=== PATIENT | female | born 1955 | race Caucasian/White ===

== ENCOUNTER 2020-05-06 14:42 | Observation (INO) | payer MEDICARE, OTHER, SELFPAY ==
[2020-05-06] VITALS (8 sets, daily range): BP systolic 99–141; BP diastolic 63–79; PULSE 93–118; RESP 16–22; TEMP 36.1–36.8; O2SAT 96–100; BMI 26.7
--- NOTE | ~2020-05-06 | XR_ITS ---
EXAMINATION: XR chest 2V DATE: 05/06/2020 16:57 INDICATION: Syncope, history of hypertension and tobacco use TECHNIQUE: AP and lateral views of the chest are obtained. COMPARISON: 07/31/2015 FINDINGS: The lungs are free of acute opacities. There is no pleural effusion or pneumothorax. The ca rdiomediastinal silhouette is normal. There is moderate thoracic spondylosis. IMPRESSION: 1. No acute cardiopulmonary abnormality. Reviewed, dictated and finalized at location A.
--- NOTE | ~2020-05-06 | CT_ITS ---
EXAMINATION: CTA chest PE protocol DATE: 05/06/2020 18:25 INDICATION: Shortness of breath, elevated d-dimer, history of tobacco use TECHNIQUE: Computed tomography angiography (CTA) of the chest was performed with 100 mL Omnipaque-350 intravenous contrast timed to evaluate the pulmonary arteries. Coronal maximum intensity projection 3D-reconstructions were created by the technologist. The dose-length product (DLP) was 314.73 mGy-cm. Automated exposure control and iterative reconstruction technique were employed. COMPARISON: None. FINDINGS: The pulmonary arteries are well-opacified. No pulmonary embolism is identified. There is m ild emphysema. The lungs are free of acute opacities. There is no pleural effusion or pneumothorax. N o pathologically enlarged thoracic lymph nodes are identified. The heart size is normal. There is mil d thoracic spondylosis. IMPRESSION: 1. No pulmonary embolism or acute cardiopulmonary abnormality. Reviewed, dictated and finalized at location A.
--- NOTE | ~2020-05-06 | CT_ITS ---
EXAMINATION: CT brain wo con INDICATION: Transient alteration of awareness COMPARISON: None TECHNIQUE: Standard unenhanced head CT. The dose-length product (DLP) was 605.33 mGy-cm. The mA was a djusted according to patient size. Iterative reconstruction technique was employed. FINDINGS: There is no intracranial hemorrhage, acute infarction, or abnormal mass lesion. A small lac unar infarct is noted in the right basal ganglia. The ventricles are normal. There is no abnormal mas s effect or midline shift. Asymmetric calcification is noted in the left basal ganglia. The kessler-whit e matter differentiation is normal. The basal cisterns are patent. The orbits are normal. There is co mplete opacification of the left maxillary sinus, the left ethmoidal air cells, and the left frontal sinus. IMPRESSION: 1. No acute intracranial abnormality. 2. Complete opacification of the left maxillary sinus, the left ethmoidal air cells, and the left fro ntal sinus. Reviewed, dictated and finalized at location A. IMPRESSION: 1. No acute intracranial abnormality. 2. Complete opacification of the left maxillary sinus, the left ethmoidal air c ells, and the left frontal sinus.
--- NOTE | 2020-05-06 14:46 | ECG_ITS ---
Measurements Intervals [place] Rate: 96 P: 59 TN: 111 QRS: -11 QRSD: 77 T: 35 QT: 356 QTc: 452 Interpretive Statements SINUS RHYTHM WITH SHORT TN INTERVAL POSSIBLE LEFT ATRIAL ENLARGEMENT BASELINE ARTIFACT- I, III, AVR, AVL BORDERLINE ECG Electronically Signed On 05-06-2020 15:24:33 CDT by Jovon Barfield D.O.
--- NOTE | 2020-05-06 14:53 | PC.NURSE ---
SPOKE WITH [employer]OR[employer] DES[employer] SALESPERSON CAROL ABOUT MY CONCERNS FOR THIS PT BEING PLACE IN TRIAGE/WR RELATED TO HER HX OF UNRESPONSIVE EPISODES. 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
[2020-05-06 15:12] LABS: Basophils Absolute Auto 0.1 K/mm3 (0.0-0.1); Basophils Percent Auto 0.8 % (0.2-1.2); Eosinophils Percent Auto 0.1 % (0-4.4); Hematocrit 34.2 % (37.0-47.0); Hemoglobin 11.5 g/dL (12.0-15.0); Immature Granulocyte Absolute 0.02 K/mm3 (0.00-0.031); Immature Granulocyte Percent A 0.2 % (0-0.5); Lymphocytes Absolute Auto 1.24 K/mm3 (0.9-3.2); Lymphocytes Percent Auto 13.6 % (18.3-44.2); Mean Corpuscular HGB Conc 33.6 g/dl (32-36); Mean Corpuscular Volume 92.2 fl (80-100); Mean Platelet Volume 8.4 fl (7.4-10.4); Monocytes Absolute Auto 0.5 K/mm3 (0.1-0.6); Monocytes Percent Auto 5.9 % (2.6-8.5); Neutrophils Absolute Auto 7.2 K/mm3 (1.3-6.7); Neutrophils Percent Auto 79.4 % (45.5-73.1); Platelet Count Result 323 k/mm3 (150-375); Red Blood Count 3.71 M/mm3 (4.2-5.4); Red Cell Distribution Width 14.5 % (11.5-14.5); White Blood Count 9.1 K/mm3 (4.5-10.0)
[2020-05-06 15:28] LABS: Anion Gap 11 mmol/L (8-16); Blood Urea Nitrogen 13 mg/dL (7-17); Calcium 8.6 mg/dL (8.4-10.2); Carbon Dioxide 21 mmol/L (22-30); Chloride 102 mmol/L (98-107); Estimated CRCL calculation 48 ml/min; Estimated Glomerular Filt Rate > 60; Glucose 116 mg/dL (65-105); Potassium 3.9 mmol/L (3.4-5.0); Sodium 134 mmol/L (137-145)
[2020-05-06 15:32] LABS: D Dimer 2.19 ug/mL (<0.48)
[2020-05-06 15:35] LABS: Magnesium 1.7 mg/dL (1.6-2.3)
[2020-05-06 15:48] LABS: NT Pro B Type Natriuretic Pept 657 PG/ML (5-100); Troponin I < 0.012 ng/mL (0.000-0.034)
[2020-05-06] MEDS: LACTATED RINGERS 1,000 ML 150 ML IV CONT ×2 (15:50→22:51)
--- NOTE | 2020-05-06 15:51 | PC.NURSE ---
IV is in L wrist
--- NOTE | 2020-05-06 16:00 | ED.SYNCOPE ---
HPI - Syncope General Chief Complaint: Syncope Stated Complaint: unresponsive episode. Time Seen by Provider: 05/06/20 15:10 Source: patient and EMS Mode of arrival: EMS Limitations: no limitations History of Present Illness HPI narrative: 64-year-old female Patient states she went to her truck in the [id number] parking lot to smoke a cigarette fell out Per EMS that actually happened more than once and she was at least briefly arousable only with sternal rub although they did not report any seizure type activity, nor was she incontinent and did not seem to be very postictal Blood pressure was low and improved somewhat after a modest amount of IV fluids Patient denies any prodromal symptoms or illness, denies palpitations or chest pain, headache or persisting neurologic symptoms She says she only takes 2 medications lisinopril and possibly atenolol for hypertension MD complaint: loss of consciousness Onset (ago): hour(s) Prodromal symptoms: none Related Data Home Medications Medication Instructions Recorded Confirmed atenolol 25 mg tablet 25 mg PO BID tablet 02/05/20 lisinopril 10 mg tablet 10 mg PO DAILY 02/05/20 Allergies Allergy/AdvReac Type Severity Reaction Status Date / Time No Known Allergies Allergy Verified 05/06/20 19:05 Review of Systems Review of Systems: All systems reviewed & are unremarkable except as noted in HPI and below Constitutional: Constitutional: Denies chills, Denies fatigue, Denies fever(s), Denies headache(s) and Denies night sweats Eyes: Eyes: Denies change in vision, Denies loss of vision and Denies other visual disturbances ENT: Denies headache(s), Denies hoarseness, Denies nasal congestion and Denies sore throat Cardiovascular: Cardiovascular: Denies chest pain, Denies rapid heart rate, Denies leg edema, Denies palpitations, Denies dyspnea and Denies slow heart rate Respiratory: Respiratory: Denies cough, Denies dyspnea and Denies wheezing Gastrointestinal: Gastrointestinal: Denies abdominal pain, Denies diarrhea, Denies nausea and Denies vomiting Genitourinary: Genitourinary: Denies hematuria, Denies urinary frequency and Denies dysuria Musculoskeletal: Musculoskeletal: Denies abnormal gait, Denies deformity, Denies joint swelling, Denies muscle weakness and Denies numbness Integumentary/Breasts: Skin/Breast: Denies rash, Denies unusual bruising and Denies wounds Neurologic: Denies abnormal gait, Denies headache(s), Denies focal weakness, Denies loss of vision and Denies numbness Psychiatric: Psychiatric: Reports no additional psychiatric complaints Endocrine: Endocrine: Denies fatigue and Denies palpitations Hematologic/Lymphatic: Hematologic/Lymphatic: Denies easy bleeding and Denies easy bruising Allergic/Immunologic: Allergic/Immunologic: Denies wheezing PMFSH Past Medical History Medical History (Updated 05/06/20 @ 17:41 by Rikki Avelar MD) Hypertension Family History Family History (Updated 05/10/19 @ 11:58 by DOCTOR UNKNOWN) Mother Family history of glaucoma Family history of malignant neoplasm of breast in first degree relative Grandparent Family history of malignant neoplasm of breast in first degree relative Sibling Family history of malignant neoplasm of breast in first degree relative Other Family history of chronic obstructive pulmonary disease Family history of malignant neoplasm of breast Family history of thyroid disease Social History Social History Smoking status: Light tobacco smoker Alcohol intake: current Gender identity (if verbalized by the patient): Female Exam Const: General: no acute distress, well developed and alert Orientation/consciousness: patient oriented x3 (alert) and Other orientation findings (Alert) HENMT: Head: normal to inspection, normocephalic and atraumatic Ears: external ears normal General nose exam: No nasal discharge present Face and sinus: face symmetric Mouth: Yes Normal oral
--- NOTE | 2020-05-06 16:29 | PC.NURSE ---
came out stating that he believes patient is drunk. He states that a couple night ago she was so drunk she couldn't stand up
[2020-05-06 16:34] LABS: Ethanol 273 mg/dL (<10)
[2020-05-06 17:46] LABS: Amphetamine Screen Urine Negative (Negative); Barbiturate Screen Urine Negative (Negative); Benzodiazepines Screen Urine Negative (Negative); Cannabinoid Screen Urine Negative (Negative); Cocaine Screen Urine Negative (Negative); Methadone Screen Urine Negative (Negative); Opiate Screen Urine Negative (Negative); Phencyclidine Screen Urine Negative (Negative)
[2020-05-06] MEDS: THIAMINE HCL 200 MG/2 ML VIAL IV PUSH (19:02)
--- NOTE | 2020-05-06 19:18 | PC.NURSE ---
report received at this time; pt laying down on stretcher; rr even and unlabored, vs stable, pt in NAD. will continue to monitor pt for baseline status changes.
--- NOTE | 2020-05-06 21:11 | ADMGEN ---
This patient, Roz Forman, was admitted to 2 Medical Room 244-. Patient/family oriented to hospital policies and general routines including ID bracelet, bed and alarms, visiting hours, pain management, procedures, bathroom and other care routines, personal items, smoking policy, room service/diet, and visiting hours. Valuables list has been completed. Information on how to activate the Rapid Response Team has been discussed. Patient/Family are encouraged to report perceived risks to care and to ask questions if they do not understand what they are told or what they should do.
[2020-05-06] MEDS: ACETAMINOPHEN 325 MG TABLET 650 MG PO (22:47)
[2020-05-06] MEDS: FAMOTIDINE 20 MG/2 ML VIAL IV PUSH (22:47)
[2020-05-07] VITALS (7 sets, daily range): BP systolic 148–155; BP diastolic 67–86; PULSE 72–113; RESP 16–18; TEMP 36.2–36.6; O2SAT 96–99
[2020-05-07] MEDS: LORazepam INJ (*CRX) 2 MG/ML VIAL 0.5 MG IV PUSH (00:11)
[2020-05-07] MEDS: LACTATED RINGERS 1,000 ML 150 ML IV CONT ×2 (05:18→12:14)
[2020-05-07] MEDS: FAMOTIDINE 20 MG/2 ML VIAL IV PUSH (08:46)
[2020-05-07] MEDS: ASPIRIN 81 MG CHEWABLE TABLET PO (08:47)
[2020-05-07] MEDS: ACETAMINOPHEN 325 MG TABLET 650 MG PO (11:20)
[2020-05-07] MEDS: atenoloL 25 MG TABLET PO (12:13)
--- NOTE | 2020-05-07 16:51 | PM.SD ---
Same Day Admit/Disch: HPI History of Present Illness Chief complaint: syncope, etoh intoxication Narrative: PC_ ALCHOLOL INTOXICATION [facility]_ Roz Forman is a 64 year old female took a cigarette and fell back at [facility], earlier that day she had drank 2-3 glasses of rum, without eating any food. Pt has been drinking for years, she likes the taste. Pt has been to rehab before 5 years ago, discused about quitting she is eager to try librium at home. Told her it is a tapering dose and she must not drink when she is on it. Pt really wants to go home feels better now, no confusion or sickness. Little shakey hands but otherwise she has walked to the bathroom. And feels well holding conversation. Some history of breast cancer which makes her anxious. Pt is a smoker. [facility] Past Medical History Medical History (Updated 05/07/20 @ 17:05 by Carrie Chen MD) Breast cancer Hypertension Family History Family History Mother Family history of glaucoma Family history of malignant neoplasm of breast in first degree relative Grandparent Family history of malignant neoplasm of breast in first degree relative Sibling Family history of malignant neoplasm of breast in first degree relative Other Family history of chronic obstructive pulmonary disease Family history of malignant neoplasm of breast Family history of thyroid disease Social History Social History Smoking status: Light tobacco smoker Tobacco type: cigarettes Alcohol intake: current Drinks per week: 14 Substance use: never Gender identity (if verbalized by the patient): Female Spiritual care concerns: No Same Day Admit/Disch: Med Pre-admit Medications Home Medications Medication Instructions Recorded Confirmed Type atenolol 25 mg tablet 25 mg PO BID tablet 02/05/20 05/06/20 History lisinopril 10 mg tablet 10 mg PO HS 02/05/20 05/06/20 History chlordiazepoxide HCl 10 mg PO Q12H #20 cap 05/07/20 Rx Exam Const: General: well developed Nutritional Appearance: well nourished Other: Mild tremors in her hands HENMT: Head: normocephalic Eyes: General: appearance normal, both eyes and all related structures Pupils: Equal, round and reactive pupils present Neck: Neck: supple Chest: Chest palpation & inspection: normal inspection of the chest Resp: Effort & Inspection: normal respiratory effort Auscultation: clear to auscultation bilaterally Cardio: Jugular venous distension: no JVD Rhythm: regular rhythm Heart sounds: S1 normal heart sound present and S2 normal heart sound present GI: Inspection: normal to inspection GI Palp: No abdominal tenderness, Yes Soft to palpation and No Tenderness to palpation present (GI) Auscultation: normal bowel sounds Skin: General skin exam: normal color and dry skin Neuro: Cranial nerves: Yes CN's II-XII intact bilaterally and Yes Equal, round and reactive pupils present Cognition (Neuro): normal cognition Speech: normal speech Motor exam (neuro): 5/5 motor strength present throughout Extrem: General: other (Grazes on her knee caps ) Psych: Appearance: grossly normal Mental Status: mental status grossly normal DS: Data Data Completed and Pending Labs on day of discharge: Labs from last 24 hours 05/06/20 17:20 Urine Opiates Screen Negative Urine Methadone Screen Negative Ur Barbiturates Screen Negative Ur Phencyclidine Scrn Negative Ur Amphetamine Screen Negative U Benzodiazepines Scrn Negative Urine Cocaine Screen Negative U Cannabinoids Screen Negative DS: Summary Time Spent with Patient Time attestation: Total time spent providing and/or coordinating discharge services:40 minutes on day of discharge DS: Admitting Diagnosis Admitting Diagnosis Admitting Diagnosis: syncope, etoh intoxication DS: Discharge Diagnosis Discharge Diagnosis (1) Alcohol int
== END 2020-05-07 17:19 | disposition home or self-care (01) ==
LOC: ANHED 19:08 → ANH2MED 05-07 00:29
PROVIDERS: Emergency Medicine; Admitting Provider Internal Medicine; Emergency Provider Emergency Medicine; PCP Family Medicine; Visit Provider Family Medicine
DX: R55 Syncope and collapse (principal); F10.929 Alcohol use, unspecified with intoxication, unspecified; I10 Essential (primary) hypertension; F17.210 Nicotine dependence, cigarettes, uncomplicated; J32.0 Chronic maxillary sinusitis; Z85.3 Personal history of malignant neoplasm of breast; R94.31 Abnormal electrocardiogram [ECG] [EKG]; Z79.899 Other long term (current) drug therapy
CPT/HCPCS: 36415; 70450; 71046; 71275; 80048; 80307; 83735; 83880; 84484; 85025; 85380; 93005; 96361; 96374; 96375; 96376; 99285; A9270; G0378; J2060; J3411; J7120; Q9967

== ENCOUNTER 2021-02-11 08:22 | Outpatient (CLI) | payer MEDICARE, OTHER, SELFPAY ==
[2021-02-11 09:02] LABS: Alanine Aminotransferase 12 U/L (4-35); Albumin Level 4.8 g/dL (3.5-5.1); Alkaline Phosphatase 113 U/L (38-126); Anion Gap 11 mmol/L (8-16); Aspartate Amino Transferase 29 U/L (14-36); Bilirubin,Total 0.5 mg/dL (0.2-1.3); Blood Urea Nitrogen 16 mg/dL (7-17); Calcium 9.7 mg/dL (8.4-10.2); Carbon Dioxide 22 mmol/L (22-30); Chloride 105 mmol/L (98-107); Cholesterol 242 mg/dL (0-200); Estimated Glomerular Filt Rate > 60; Glucose 115 mg/dL (65-105); HDL Direct 69 mg/dL; Potassium 4.5 mmol/L (3.4-5.0); Sodium 138 mmol/L (137-145); Triglycerides 173 mg/dL (<150)
[2021-02-11 09:13] LABS: LDL Cholesterol Direct 121 mg/dL
[2021-02-11 12:35] LABS: Free T4 Free Thyroxine 1.18 ng/mL (0.78-2.19)
[2021-02-11 12:49] LABS: Thyroid Stimulating Hormone Reflex 0.871 uIU/mL (0.465-4.68)
[2021-02-14 14:59] LABS: Thyroid Stimulating Immunoglob <89 % baseline (<140)
[2021-02-16 02:46] LABS: Thyroid Peroxidase Antibodies <1 IU/mL (<9)
== END 2021-02-11 08:23 | disposition home or self-care (01) ==
PROVIDERS: PCP Family Medicine; Visit Provider Internal Medicine Endocrinology, Diabetes & Metabolism
DX: R94.6 Abnormal results of thyroid function studies (principal); I10 Essential (primary) hypertension; Z13.220 Encounter for screening for lipoid disorders
CPT/HCPCS: 36415; 80053; 80061; 84439; 84443; 84445; 84481; 86376

== ENCOUNTER 2021-08-19 09:13 | Outpatient (CLI) | payer MEDICARE, OTHER, SELFPAY ==
[2021-08-19 10:03] LABS: Alanine Aminotransferase 14 U/L (4-35); Albumin Level 4.3 g/dL (3.5-5.1); Alkaline Phosphatase 131 U/L (38-126); Anion Gap 9 mmol/L (8-16); Aspartate Amino Transferase 28 U/L (14-36); Bilirubin,Total 0.5 mg/dL (0.2-1.3); Blood Urea Nitrogen 15 mg/dL (7-17); Calcium 9.1 mg/dL (8.4-10.2); Carbon Dioxide 24 mmol/L (22-30); Chloride 102 mmol/L (98-107); Cholesterol 239 mg/dL (0-200); Estimated Glomerular Filt Rate > 60; Glucose 133 mg/dL (65-110); HDL Direct 89 mg/dL; Potassium 4.5 mmol/L (3.4-5.0); Sodium 135 mmol/L (137-145); Triglycerides 81 mg/dL (<150)
[2021-08-19 10:14] LABS: LDL Cholesterol Direct 126 mg/dL
[2021-08-19 10:55] LABS: Free T4 Free Thyroxine 1.11 ng/mL (0.78-2.19)
[2021-08-19 11:09] LABS: Thyroid Stimulating Hormone Reflex 0.772 uIU/mL (0.465-4.68)
[2021-08-21 06:02] LABS: Thyroid Peroxidase Antibodies <1 IU/mL (<9)
[2021-08-22 14:21] LABS: Thyroid Stimulating Immunoglob <89 % baseline (<140)
== END 2021-08-19 09:14 | disposition home or self-care (01) ==
PROVIDERS: Visit Provider Internal Medicine Endocrinology, Diabetes & Metabolism
DX: I10 Essential (primary) hypertension (principal); R94.6 Abnormal results of thyroid function studies; Z13.220 Encounter for screening for lipoid disorders
CPT/HCPCS: 36415; 80053; 80061; 84439; 84443; 84445; 84481; 86376

== ENCOUNTER 2023-01-04 08:51 | Outpatient (CLI) | payer MEDICARE, OTHER, SELFPAY ==
--- NOTE | ~2023-01-04 | NM_ITS ---
EXAMINATION: NM bone scan whole body DATE: 01/04/2023 13:38 INDICATION: Low back pain, unspecified. TECHNIQUE: 21.2 mCi Tc-99m HDP was administered intravenously. Delayed whole-body scintigrams were o btained. COMPARISON: Chest CT 05/06/2020, CT abdomen and pelvis 07/16/2016 FINDINGS: There is increased activity at L4-L5. IMPRESSION: 1. Increased activity at L4-L5, most likely degenerative disc disease with worsening from 07/16/2016. Consider lumbar spine radiographs. Reviewed, dictated and finalized at location A. IMPRESSION: 1. Increased activity at L4-L5, most likely degenerative disc disease with wors ening from 07/16/2016. Consider lumbar spine radiographs.
== END 2023-01-04 08:52 | disposition home or self-care (01) ==
PROVIDERS: PCP Family Medicine; Visit Provider Nurse Practitioner Family
DX: M54.50 Low back pain, unspecified (principal); Z85.3 Personal history of malignant neoplasm of breast; M51.36 Other intervertebral disc degeneration, lumbar region
CPT/HCPCS: 78306; A9503

== ENCOUNTER 2023-01-19 12:02 | Inpatient (IN) | payer MEDICARE, OTHER, SELFPAY ==
[2023-01-19] VITALS (25 sets, daily range): BP systolic 103–145; BP diastolic 53–96; PULSE 58–106; RESP 17–29; TEMP 36.1–37; O2SAT 95–100; BMI 24.5
--- NOTE | ~2023-01-19 | XR_ITS ---
Supine views of the abdomen Clinical history: Abdominal pain small bowel obstruction COMPARISON: 01/20/2023 Findings: NG tube is in satisfactory position. There is oral contrast within mildly dilated small bow el loops, as well as within large bowel. No free air evident. No abnormal mass lesion or calcificatio n is seen. Osseous structures are intact. Impression: NG tube in place. Possible partial small bowel obstruction. Reviewed, dictated and finalized at location M. Impression: NG tube in place. Possible partial small bowel obstruction.
--- NOTE | ~2023-01-19 | XR_ITS ---
EXAMINATION: XR abdomen NG/feed tube insert INDICATION: Nasogastric tube placement TECHNIQUE: Portable AP KUB-NG at 1620 hours COMPARISON: CT from today FINDINGS: The tip of the nasogastric tube projects in lower thorax, likely the distal esophagus. Jase mmend advancing at least 12 cm. There are multiple dilated loops of small bowel, consistent with smal l bowel obstruction seen on the comparison CT. IMPRESSION: 1. Nasogastric tube with its tip in the lower thorax, likely the distal esophagus. Recommend advancin g 12 cm. Reviewed, dictated and finalized at location F. IMPRESSION: 1. Nasogastric tube with its tip in the lower thorax, likely the distal esophag us. Recommend advancing 12 cm.
--- NOTE | ~2023-01-19 | XR_ITS ---
XR abdomen obstructive series DATE: 01/22/2023 09:13 INDICATION: Bowel obstruction TECHNIQUE: Portable supine and upright AP views on 02/01/2023 at 0 900 and 0902 hours COMPARISON: 01/21/2023 KUB FINDINGS: NG tube is noted with distal tip overlying the distal body of the stomach. There are dilated gas distended proximal and mid small bowel segments, with apparent decompression of the distal small bowel. There is a small amount of residual contrast material within the rectum and the colon. No intraperitoneal free air is evident. Mild infiltrates or atelectasis at the lung bases.. IMPRESSION: Mid to distal small bowel obstruction is suggested NG tube in stomach Reviewed, dictated and finalized at Location A. Reviewed, dictated and finalized at location []
--- NOTE | ~2023-01-19 | XR_ITS ---
EXAMINATION: XR abdomen NG/feed tube rechec INDICATION: Nasogastric tube adjustment TECHNIQUE: Portable AP KUB-NG at 1743 hours COMPARISON: 1620 hours FINDINGS: The tip of the nasogastric tube is in the distal esophagus just above the gastroesophageal junction. The proximal side port is approximately 8 cm above the gastroesophageal junction. Multiple dilated loops of small bowel are again seen. IMPRESSION: 1. Tip of the nasogastric tube in the distal esophagus with the proximal side port approximately 8 cm above the gastroesophageal junction. Reviewed, dictated and finalized at location F. IMPRESSION: 1. Tip of the nasogastric tube in the distal esophagus with the proximal side p ort approximately 8 cm above the gastroesophageal junction.
--- NOTE | ~2023-01-19 | CT_ITS ---
EXAMINATION: CT abdomen pelvis w con INDICATION: Abdominal pain TECHNIQUE: Computed tomographic images of the abdomen and pelvis were obtained after the administrati on of 100 cc of Omnipaque 350 intravenous contrast. The dose-length product (DLP) was 381.17 mGy-cm. Automated exposure control and iterative reconstruction technique were employed. COMPARISON: 07/16/2016 FINDINGS: Minimal dependent atelectasis is present in the lung bases. The heart size is normal. There is a small sliding hiatal hernia. Mild scarring anteriorly in the right middle lobe could be related to radiation treatment for right breast cancer. The liver, spleen, pancreas, gallbladder, and adrena l glands are normal. The kidneys are unremarkable. No pathologically enlarged abdominal or pelvic lym ph nodes are identified. There are multiple dilated loops of small bowel. There are two adjacent sewell sition points in the lower abdomen. The affected segment of bowel between the transition point demons trates circumferential wall thickening and a small volume of associated ascites. The terminal ileum a nd colon are relatively decompressed. There is no free intraperitoneal gas. Colonic diverticulosis is present without evidence of diverticulitis. There is moderate lumbar spondylosis. IMPRESSION: 1. Findings consistent with closed loop small bowel obstruction and with possible ischemia of the aff ected small bowel segment. Surgical evaluation is recommended. These findings and recommendations wer e discussed with Rosina Orellana PA-C in the Emergency Department at 1505 hours on 01/19/2023. Reviewed, dictated and finalized at location F. IMPRESSION: 1. Findings consistent with closed loop small bowel obstruction and with possib le ischemia of the affected small bowel segment. Surgical evaluation is recomme nded. These findings and recommendations were discussed with Rosina Orellana PA-C in the Emergency Department at 1505 hours on 01/19/2023.
--- NOTE | ~2023-01-19 | XR_ITS ---
EXAMINATION: XR abdomen obstructive series DATE: 01/23/2023 05:58 INDICATION: Partial small bowel obstruction TECHNIQUE: Supine and upright views of the abdomen. FINDINGS: Comparison to 01/20/2023 The visualized lung parenchyma is normal.. There are mildly dilated loops of small bowel. There is co ntrast in the colon with gas in the rectum. NG tube in the stomach. Left basilar atelectasis. Small l eft pleural effusion. Gas and stool are seen throughout the colon to the level of the rectum. There is no free air. IMPRESSION: 1. Mildly dilated small bowel, decreased in size compared with prior studies, consistent with at justen st partial small bowel obstruction. 2: Left basilar atelectasis. 3: Small left pleural effusion. Reviewed, dictated and finalized at location A. IMPRESSION: 1. Mildly dilated small bowel, decreased in size compared with prior studies, consistent with at least partial small bowel obstruction. 2: Left basilar atelectasis. 3: Small left pleural effusion.
--- NOTE | ~2023-01-19 | XR_ITS ---
XR abdomen/kub 1V 01/24/2023 05:33 INDICATION: Partial small bowel obstruction TECHNIQUE: KUB COMPARISON: Comparison to multiple prior studies sequentially, with oldest reviewed study dated 02/2023. FINDINGS: NG tube in the stomach. There is mildly dilated small bowel central abdomen, improved since prior examination. There is residual contrast in the colon. There are pelvic phleboliths. IMPRESSION: 1: Improving small bowel distention, likely resolving ileus or partial small bowel obstruction.. Reviewed, dictated and finalized at location A. IMPRESSION: 1: Improving small bowel distention, likely resolving ileus or partial small ez wel obstruction..
--- NOTE | ~2023-01-19 | XR_ITS ---
XR fl guid NG/feed tube insert 01/20/2023 09:38 Indication: NG tube placement Procedure: Fluoroscopy was performed for attempted placement of NG tube. 1.1 minutes of fluoroscopy t mary jo. 1 fluoroscopic image. Comparison: CT dated 01/19/2023 Findings: Multiple attempts were made to place NG tube in supine and upright positions without succes s. Patient unable to tolerate continued attempts. Small bowel follow-through examination could not be subsequently performed. Impression: 1: Failed NG tube placement. Reviewed, dictated and finalized at location A. Impression: 1: Failed NG tube placement.
--- NOTE | ~2023-01-19 | XR_ITS ---
EXAMINATION: XR sm bowel follow through WS DATE: 01/20/2023 18:58 INDICATION: Small bowel obstruction TECHNIQUE: Oral contrast was administered, and sequential radiographs of the abdomen were obtained. F our sequential images of the abdomen are obtained over three hours. COMPARISON: 1524 hours FINDINGS: The nasogastric tube is in the stomach. There are multiple markedly dilated loops of small bowel. Contrast passes to the expected point of the small bowel obstruction, but not beyond, at the t hree are time point. IMPRESSION: 1. Small bowel obstruction. Reviewed, dictated and finalized at location F. IMPRESSION: 1. Small bowel obstruction.
--- NOTE | ~2023-01-19 | XR_ITS ---
SMALL BOWEL SERIES ONLY INDICATION: Small bowel obstruction TECHNIQUE: KUB performed. Small bowel follow-through examination could not be performed due to inabil ity to place NG tube. COMPARISON: 01/19/2023 FINDINGS: Filled small bowel follow-through examination. Dilated small bowel, consistent with obstruc tion. IMPRESSION: 1: Small bowel obstruction. Failed small bowel follow-through study due to lack of NG tube. Reviewed, dictated and finalized at location A. IMPRESSION: 1: Small bowel obstruction. Failed small bowel follow-through study due to lac k of NG tube.
--- NOTE | ~2023-01-19 | XR_ITS ---
EXAMINATION: XR fl guid NG/feed tube insert DATE: 01/20/2023 15:44 INDICATION: Small bowel obstruction. TECHNIQUE: I placed a nasogastric tube under fluoroscopic guidance using a guidewire. Fluoroscopy exp osure time was 10.8 minutes. The number of images was 1. COMPARISON: Abdomen radiograph 01/19/2023 FINDINGS: There are multiple dilated loops of small bowel. The nasogastric tube tip is in the distal stomach. IMPRESSION: 1. Fluoroscopy guided nasogastric tube placement with tip in the distal stomach. 2. Small bowel obstruction. Reviewed, dictated and finalized at location A. IMPRESSION: 1. Fluoroscopy guided nasogastric tube placement with tip in the distal stomach . 2. Small bowel obstruction.
[2023-01-19 12:44] LABS: Basophils Absolute Auto 0.1 K/mm3 (0.0-0.1); Basophils Percent Auto 1.1 % (0.2-1.2); Eosinophils Absolute Auto 0.1 K/mm3 (0-0.3); Eosinophils Percent Auto 1.5 % (0-4.4); Hematocrit 39.6 % (37.0-47.0); Hemoglobin 12.6 g/dL (12.0-15.0); Immature Granulocyte Absolute 0.01 K/mm3 (0.00-0.031); Immature Granulocyte Percent A 0.2 % (0-0.5); Lymphocytes Absolute Auto 1.16 K/mm3 (0.9-3.2); Lymphocytes Percent Auto 21.3 % (18.3-44.2); Mean Corpuscular HGB Conc 31.8 g/dl (32-36); Mean Corpuscular Hemoglobin 29.4 pg (26-34); Mean Corpuscular Volume 92.3 fl (80-100); Mean Platelet Volume 9.3 fl (7.4-10.4); Monocytes Absolute Auto 0.9 K/mm3 (0.1-0.6); Monocytes Percent Auto 15.8 % (2.6-8.5); Neutrophils Absolute Auto 3.3 K/mm3 (1.3-6.7); Neutrophils Percent Auto 60.1 % (45.5-73.1); Platelet Count Result 316 k/mm3 (150-375); Red Blood Count 4.29 M/mm3 (4.2-5.4); Red Cell Distribution Width 13.4 % (11.5-14.5); White Blood Count 5.4 K/mm3 (4.5-10.0)
[2023-01-19 13:01] LABS: Alanine Aminotransferase 17 U/L (6-35); Albumin Level 4.4 g/dL (3.5-5.1); Alkaline Phosphatase 81 U/L (38-126); Anion Gap 8 mmol/L (8-16); Aspartate Amino Transferase 31 U/L (14-36); Blood Urea Nitrogen 40 mg/dL (7-17); Calcium 9.2 mg/dL (8.4-10.2); Carbon Dioxide 30 mmol/L (22-30); Chloride 94 mmol/L (98-107); Estimated CRCL calculation 29 ml/min; Estimated Glomerular Filt Rate 41; Glucose 109 mg/dL (65-110); Lipase 29 U/L (23-300); Potassium 4.4 mmol/L (3.4-5.0); Sodium 132 mmol/L (137-145)
--- NOTE | 2023-01-19 14:18 | ED.ABDPAIN ---
HPI - Abdominal Pain General Chief Complaint: Abdominal Pain <SUNDAY Javier Last Filed: 01/21/23 11:56> Stated Complaint: abd pain <SUNDAY Javier Last Filed: 01/21/23 11:56> Time Seen by Provider: 01/19/23 12:48 <SUNDAY Javier Last Filed: 01/21/23 11:56> History of Present Illness HPI narrative: 67-year-old female with a history of hypothyroidism, hypertension, history of breast cancer and history of bowel obstruction 7 years ago reports for evaluation of generalized abdominal pain and distention. Patient states she thinks she is having another bowel obstruction and this is exactly how she presented when she was previously diagnosed with a bowel obstruction. She states her last bowel movement was yesterday. She reports obstipation for the past 2 days, nausea and approximately 5 episodes of nonbloody vomiting. She reports decreased p.o. intake secondary to nausea and decreased urine output. Last urination was this morning. Denies dysuria, frequency or urgency, fever, bodyaches or chills, chest pain or shortness of breath. States when she had a bowel obstruction 7 years ago she had to undergo 2 abdominal surgeries after. She denies history of other abdominal surgeries. <SUNDAY Javier Last Filed: 01/21/23 11:56> Related Data Home Medications: Home Medications Medication Instructions Recorded Confirmed atenolol 25 mg tablet 25 mg PO BID 02/05/20 01/19/23 lisinopril 10 mg tablet 10 mg PO DAILY 02/05/20 01/19/23 meloxicam 7.5 mg tablet 7.5 mg PO BID back pain 01/19/23 01/19/23 <SUNDAY Javier Last Filed: 01/21/23 11:56> Allergies/Adverse Reactions: Allergies Allergy/AdvReac Type Severity Reaction Status Date / Time No Known Allergies Allergy Verified 01/29/23 09:28 <SUNDAY Javier Last Filed: 01/21/23 11:56> Review of Systems Review of Systems: CONSTITUTIONAL: Denies fever, chills EYES: Denies visual changes, redness, or discharge. ENT: Denies rhinorrhea, congestion, sore throat, or otalgia. CARDIOVASCULAR: Denies chest pain, palpitations, or edema. RESPIRATORY: Denies cough or dyspnea. GASTROINTESTINAL: See HPI GENITOURINARY: Denies dysuria or hematuria. SKIN: Denies rash or itching. MUSCULOSKELETAL: Denies back pain, joint pain, or myalgia. NEUROLOGIC: Denies headache, numbness, dizziness, or weakness. PSYCHIATRIC: Denies anxiety or depression. <Rosina Orellana PA-C - Last Filed: 01/21/23 11:56> [facility] Past Medical History Medical History: Medical History Bowel obstruction (~2015) Breast cancer (~2014) Rt breast lumpectomy, chemo, radiation - [facility] Hypertension <SUNDAY Javier Last Filed: 01/21/23 11:56> Surgical History Surgical History: Surgical History H/O: hysterectomy History of hernia surgery (~2015) History of intestinal surgery (~2015) bowel obstruction History of lumpectomy of right breast (~2014) <SUNDAY Javier Last Filed: 01/21/23 11:56> Family History Family History: Family History Mother Family history of glaucoma Family history of malignant neoplasm of breast in first degree relative Grandparent Family history of malignant neoplasm of breast in first degree relative Sibling Family history of malignant neoplasm of breast in first degree relative Other Family history of chronic obstructive pulmonary disease Family history of malignant neoplasm of breast Family history of thyroid disease <SUNDAY Javier Last Filed: 01/21/23 11:56> Social History Social History: Social History Social History: she has 2 children a son and a daughter. She lives with her daniel. 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
[2023-01-19] MEDS: ONDANSETRON INJ 4 MG/2 ML VIAL IV PUSH ×2 (14:39→21:15)
[2023-01-19] MEDS: HYDROmorphone HCL INJ (*CRX) 1 MG/ML SYR 0.5 MG IV PUSH ×3 (14:39→23:46)
[2023-01-19] MEDS: SODIUM CHLORIDE 0.9% IV 1,000 ML 999 ML IV CONT (14:39)
[2023-01-19 15:38] LABS: Lactic Acid Reflex 0.9 mmol/L (0.7-2.0)
--- NOTE | 2023-01-19 17:06 | PM.CNGS ---
Assessment and Plan Assessment and plan (1) Small bowel obstruction: Code(s): K56.609 - Unspecified intestinal obstruction, unspecified as to partial versus complete obstruction Status: Acute Assessment and Plan: Long discussion with patient and regarding findings on CT scan, the patient's lactate and white count are normal indicating no ischemic changes at this time, her exam is somewhat concerning given voluntary guarding in the right lower quadrant, the patient and want to be transferred to [place] where she had her previous surgeries, discussed with the emergency room physician who will facilitate transfer at this time History of Present Illness Consult details Consult date: 01/19/23 Reason for consult: abdominal pain Requesting physician: Rosina Orellana PA-C Narrative: The patient is a 67-year-old female presenting to the emergency department complaining of worsening abdominal pain over the 72 hours. Patient reports poor appetite associated with nausea, constipation over this time. The patient reports that the pain is constant but intermittently becomes very intense and crampy. The patient reports this is very similar to her previous episodes of bowel obstructions. The patient has a complicated surgical history including to major abdominal surgeries secondary to bowel obstruction approximately 7 years ago. Review of Systems Constitutional: Constitutional: Reports as per HPI, Reports anorexia, Denies chills, Reports fatigue, Denies fever(s), Denies increased appetite, Reports lethargy, Reports malaise, Reports poor appetite, Reports weakness, Denies weight gain and Denies weight loss Eyes: Eyes: Reports no additional eye complaints ENT: Reports system reviewed and no additional complaints, except as documented Cardiovascular: Cardiovascular: Reports no additional cardiovascular complaints Respiratory: Respiratory: Reports no additional respiratory complaints Gastrointestinal: Gastrointestinal: Reports as per HPI, Reports abdominal pain, Reports bloating, Reports change in bowel habits, Reports constipation, Reports GI cramping, Reports early satiety, Reports nausea and Denies vomiting Genitourinary: Genitourinary: Reports no additional female genitourinary complaints Musculoskeletal: Musculoskeletal: Reports no additional musculoskeletal complaints Integumentary/Breasts: Skin/Breast: Reports system reviewed and no additional complaints, except as docu Neurologic: Reports system reviewed and no additional complaints, except as documented Psychiatric: Psychiatric: Reports no additional psychiatric complaints Endocrine: Endocrine: Reports no additional endocrine complaints Hematologic/Lymphatic: Hematologic/Lymphatic: Reports no additional hematologic/lymphatic complaints Allergic/Immunologic: Allergic/Immunologic: Reports no additional allergic/immunologic complaints PMFSH Past Medical History Medical History Bowel obstruction (~2015) Breast cancer (~2014) Rt breast lumpectomy, chemo, radiation - [facility] Hypertension Surgical History Surgical History History of hernia surgery (~2015) History of intestinal surgery (~2015) bowel obstruction History of lumpectomy of right breast (~2014) Family History Family History Mother Family history of glaucoma Family history of malignant neoplasm of breast in first degree relative Grandparent Family history of malignant neoplasm of breast in first degree relative Sibling Family history of malignant neoplasm of breast in first degree relative Other Family history of chronic obstructive pulmonary disease Family history of malignant neoplasm of breast Family history of thyroid disease Social History Social History Smoking
--- NOTE | 2023-01-19 17:21 | PC.NURSE ---
RN advances NG tube to 65. NG suctioning still suctioning. At this time 250mls of brownish contents in the suction container.
[2023-01-19 17:44] LABS: Appearance Urine Cloudy (Clear); Bacteria Urine 4+ /hpf; Bilirubin Urine Negative (Negative); Blood Urine Negative (Negative); Color Urine Yellow (Yellow); Glucose Urine UA Negative (Negative); Ketones Urine 1+ mg/dL (Negative); Leukocyte Esterase Ur Negative LEU/UL (Negative); Need Manual Microscopic Reviewed; Nitrate Urine Negative (Negative); Non Pathogenic Casts 0-2; Protein Urine Negative (Negative); RBC Urine 0-2 /hpf (0-2); Squamous Epithelial Cell Urine Many /hpf (Few); Urobilinogen Urine 0.2 mg/dL (<2.0); WBC Urine 0-5 /hpf
[2023-01-19 17:47] LABS: Specific Grav Ur 1.069 (1.001-1.035)
[2023-01-19 17:48] LABS: Add Urine Microscopic? YES
[2023-01-19] MEDS: BENZOCAINE/TETRACAINE SPRAY (*SP) 56 ML AEROSOL 1 SPRAY (18:24)
--- NOTE | 2023-01-19 19:54 | PM.IMHP ---
H&P: HPI History of Present Illness Date/Time: 01/19/23 19:54 Chief Complaint: Abdominal pain Narrative: this is a 67-year-old female patient who has had a history of small-bowel obstructions in the past. She also has a history of hypothyroidism hypertension and history of breast cancer. Patient had a history of having a small-bowel obstruction 7 years ago. The patient was told that she has a lot of scar tissue. The patient stated that her pain today was as severe as 7 years ago when she had a small-bowel obstruction. The patient had a normal bowel movement yesterday. The patient stated that she had obstipation our last 2 days with nausea and at least 5 episodes of nonbloody emesis. the patient stated that she ate a taco yesterday and in the middle of the night she vomited and unknown digested taco. Patient had undergone 2 abdominal surgery 7 years ago when she had a bowel obstruction. Her sodium is slightly low at 132. BUN 40 creatinine 1.3. GFR is 41. Her urine has many squamous cells and 4+ bacteria. The patient has lower back pain but stated she has not had any urinary symptoms. Abdominal pelvis CT was read as the followingFindings consistent with closed loop small bowel obstruction and with possible ischemia of the affected small bowel segment. Surgical evaluation is recommended. These findings and recommendations were discussed with Rosina Orellana PA-C in the Emergency Department at 1505 hours on 01/19/2023. initially the patient was going to be transferred to outside facility were her surgeries were performed. However there were no beds at [facility]. The patient had NG tube placed. The ED provider spoke with Dr. Browne who agrees to be a consult and advise is a small-bowel follow-through. The patient is being admitted to inpatient status on the date of service 01/20/2020 Review of Systems Review of Systems: All systems reviewed & are unremarkable except as noted in HPI and below Constitutional: Constitutional: Reports as per HPI and Reports no additional constitutional complaints Eyes: Eyes: Reports as per HPI and Reports no additional eye complaints ENT: Reports system reviewed and no additional complaints, except as documented and Reports Normal hearing present Cardiovascular: Cardiovascular: Reports no additional cardiovascular complaints Respiratory: Respiratory: Reports no additional respiratory complaints and Reports no additional respiratory complaints Gastrointestinal: Gastrointestinal: Reports as per HPI and Reports no additional gastrointestinal complaints Musculoskeletal: Musculoskeletal: Reports no additional musculoskeletal complaints Integumentary/Breasts: Skin/Breast: Reports system reviewed and no additional complaints, except as docu and Reports as per HPI Neurologic: Reports system reviewed and no additional complaints, except as documented, Reports as per HPI and Reports Normal hearing present Psychiatric: Psychiatric: Reports no additional psychiatric complaints and Reports as per HPI Endocrine: Endocrine: Reports no additional endocrine complaints Hematologic/Lymphatic: Hematologic/Lymphatic: Reports no additional hematologic/lymphatic complaints Allergic/Immunologic: Allergic/Immunologic: Reports no additional allergic/immunologic complaints [facility] Past Medical History Medical History (Updated 01/19/23 @ 23:31 by Tri Amaya NP) Bowel obstruction (~2015) Breast cancer (~2014) Rt breast lumpectomy, chemo, radiation - [place] Hypertension Surgical History Surgical History (Updated 01/19/23 @ 19:55 by Tri Amaya NP) H/O: hysterectomy History of hernia surgery (~2015) History of intestinal surgery (~2015) bowel obstruction History of lumpectomy of right breast (~2014) Family History Family History Mother Family history of glaucoma Family history of malignant neoplasm of breast in first degree relative Grandpare
[2023-01-19] MEDS: SODIUM CHLORIDE 0.9% IV 1,000 ML 125 ML IV CONT (20:09)
--- NOTE | 2023-01-19 21:21 | ADMGEN ---
This patient, Roz Forman, was admitted to [address] [place] [address] Room [facility] at 2115 . Patient/family oriented to hospital policies and general routines including ID bracelet, bed and alarms, visiting hours, pain management, procedures, bathroom and other care routines, personal items, smoking policy, room service/diet, and visiting hours. Information on how to activate the Rapid Response Team has been discussed. Patient/Family are encouraged to report perceived risks to care and to ask questions if they do not understand what they are told or what they should do.
[2023-01-20 04:18] VITALS: BP 157/71; PULSE 101; RESP 18; TEMP 36.1; O2SAT 94
[2023-01-20] MEDS: SODIUM CHLORIDE 0.9% IV 1,000 ML 125 ML IV CONT ×2 (05:18→21:47)
[2023-01-20] MEDS: HYDROmorphone HCL INJ (*CRX) 1 MG/ML SYR 0.5 MG IV PUSH ×3 (05:19→21:49)
[2023-01-20] MEDS: ONDANSETRON INJ 4 MG/2 ML VIAL IV PUSH ×2 (05:26→10:11)
[2023-01-20 05:35] LABS: Hemoglobin 11.2 g/dL (12.0-15.0); Mean Corpuscular HGB Conc 31.1 g/dl (32-36); Mean Corpuscular Volume 93.3 fl (80-100); Mean Platelet Volume 9.5 fl (7.4-10.4); Platelet Count Result 288 k/mm3 (150-375); Red Blood Count 3.86 M/mm3 (4.2-5.4); Red Cell Distribution Width 13.6 % (11.5-14.5)
[2023-01-20 05:43] LABS: Lactic Acid Reflex 0.6 mmol/L (0.7-2.0)
[2023-01-20 05:46] LABS: Magnesium 1.7 mg/dL (1.6-2.3)
[2023-01-20 06:39] LABS: Thyroid Stimulating Hormone Reflex 0.284 uIU/mL (0.465-4.68)
[2023-01-20 07:41] LABS: Free T4 Free Thyroxine Reflex 1.35 ng/dL (0.78-2.19)
[2023-01-20 08:03] LABS: Band Neutrophils Percent 36 % (0-6); Lymphocytes Percent Manual 10 % (18-44); Metamyelocytes Percent 1 %; Monocytes Percent Manual 10 % (3-9); Neutrophils Absolute Manual 3.16 K/mm3 (1.7-7.2); Neutrophils Percent Manual 43 % (46-73); Platelet Estimate Adequate (Adequate); Total Cells Counted 100
[2023-01-20 08:04] LABS: Schistocytes None Seen (NORMAL)
--- NOTE | 2023-01-20 08:30 | PC.NURSE ---
Radiology called securities underwriter and stated the NG tube needs advanced and asked if securities underwriter could come down to attempt advancement of NG tube. Xray showed the tip of the tube above location needed. Patients nose was marked at 70cm. Candy Rolling Machine Operator did not attempt advancement and stated to radiology team the tube cannot be advanced anymore and we need a picture of the entire tube. Next xray showed the upper part of the NG tube was coiled. Candy Rolling Machine Operator removed NG tube completely and attempted placement. Patient vomited moderate amount during placement and tube was removed as patient was not tolerating it and pulling away. Radiology team recommended fluoroscopy for placement. Candy Rolling Machine Operator returned to unit and sent float/tasking SHIRIN Ogden to assist in radiology.
--- NOTE | 2023-01-20 08:55 | PC.NURSE ---
Patient requested that fha underwriter call and give him an update. Inspector Quality Assurance called Juloi César and updated him.
[2023-01-20 10:02] LABS: Total Triiodothyronine (T3) 0.83 NG/ML (0.97-1.69)
--- NOTE | 2023-01-20 11:21 | PM.IMPN ---
Progress Note: A&P Assessment and Plan (1) Bowel obstruction: Onset Date: ~2015 Code(s): K56.609 - Unspecified intestinal obstruction, unspecified as to partial versus complete obstruction Status: Acute Assessment and Plan: Surgery has been consulted continue with analgesics the patient is NPO at this time. Continue with IV fluids. (2) UTI (urinary tract infection): Code(s): N39.0 - Urinary tract infection, site not specified Status: Acute Assessment and Plan: Patient has no urinary symptoms. Discontinue Rocephin (3) Primary hypertension: Code(s): I10 - Essential (primary) hypertension Status: Acute Assessment and Plan: Atenolol and lisinopril on hold at this time as she is NPO. Continue p.r.n. hydralazine. Subjective Date/time seen: 01/20/23 11:21 Interval history: Patient reports nausea. NGT was attempted this morning but patient continued to throw up so NG tube could not be placed. Will be tried again later today Review of Systems Review of Systems: All systems reviewed & are unremarkable except as noted in HPI and below Constitutional: Constitutional: Reports as per HPI and Reports no additional constitutional complaints Eyes: Eyes: Reports as per HPI and Reports no additional eye complaints ENT: Reports system reviewed and no additional complaints, except as documented and Reports Normal hearing present Cardiovascular: Cardiovascular: Reports no additional cardiovascular complaints Respiratory: Respiratory: Reports no additional respiratory complaints and Reports no additional respiratory complaints Gastrointestinal: Gastrointestinal: Reports as per HPI and Reports no additional gastrointestinal complaints Musculoskeletal: Musculoskeletal: Reports no additional musculoskeletal complaints Integumentary/Breasts: Skin/Breast: Reports system reviewed and no additional complaints, except as docu and Reports as per HPI Neurologic: Reports system reviewed and no additional complaints, except as documented, Reports as per HPI and Reports Normal hearing present Psychiatric: Psychiatric: Reports no additional psychiatric complaints and Reports as per HPI Endocrine: Endocrine: Reports no additional endocrine complaints Hematologic/Lymphatic: Hematologic/Lymphatic: Reports no additional hematologic/lymphatic complaints Allergic/Immunologic: Allergic/Immunologic: Reports no additional allergic/immunologic complaints Exam Const: General: cooperative, healthy appearing, comfortable, no acute distress, well developed, awake, Physically active, average body habitus and well nourished Nutritional Appearance: average body habitus and well nourished Orientation/consciousness: oriented to person, oriented to place, oriented to time and patient oriented x3 Limitations: no limitations HENMT: Head: normal to inspection, No palpable skull fracture present, normocephalic and atraumatic Ears: hearing grossly normal bilaterally and external ears normal Face/Nose/Sinus: Normal external nose present ( and nG-tube in place) and Normal nares present Eyes: General: appearance normal, both eyes and all related structures Alignment and Position: alignment normal Periorbital: periorbital findings normal Eyelids: eyelids normal Sclera: sclerae normal Pupils: Equal, round and reactive pupils present and Pupil accommodation reflex normal EOM: EOMs intact bilaterally Neck: Neck: normal visual inspection, full ROM, no lymphadenopathy, trachea midline and supple Chest: Chest palpation & inspection: normal inspection of the chest Resp: Effort & Inspection: normal respiratory effort Auscultation: clear to auscultation bilaterally Cardio: Palpation: normal PMI Rate: regular rate Rhythm: regular rhythm Heart sounds: S1 normal heart sound present and S2 normal heart sound present Peripheral pulses: Peripheral pulses 2+ throughout GI: Inspection: normal to insp
--- NOTE | 2023-01-20 12:59 | PM.PNGS ---
Progress Note: A&P Assessment and Plan (1) Bowel obstruction: Onset Date: ~2015 Code(s): K56.609 - Unspecified intestinal obstruction, unspecified as to partial versus complete obstruction Status: Acute Assessment and Plan: will try to have radiology place NG under fluoro c light sedation, hopefully can get SBS after NG placed, cont serial exams, labs, still awaiting transfer to [facility] Subjective Subjective Date/Time Seen: 01/20/23 12:59 Interval history: feels a little better today, pain slightly improved, unable to place NG at bedside Review of Systems Review of Systems: All systems reviewed & are unremarkable except as noted in HPI and below Exam Const: General: cooperative, comfortable and no acute distress Resp: Auscultation: clear to auscultation bilaterally Cardio: Rate: regular rate Rhythm: regular rhythm GI: Inspection: normal to inspection and distended GI Palp: Yes abdominal tenderness, Yes Soft to palpation, Yes Tenderness to palpation present (GI), No Guarding due to palpation present (GI) and No Rigid due to palpation Objective Data Vital Signs Vital Signs: Vital Signs - 24 hr 01/19/23 14:14 01/19/23 15:31 01/19/23 16:29 Temperature Pulse Rate 74 58 L Respiratory Rate 20 22 H Blood Pressure 130/70 145/53 H 133/79 Pulse Oximetry 98 98 Oxygen Delivery 01/19/23 16:30 01/19/23 16:31 01/19/23 16:32 Temperature Pulse Rate 81 105 H 106 H Respiratory Rate 20 20 17 Blood Pressure 119/96 H Pulse Oximetry 100 Oxygen Delivery 01/19/23 16:45 01/19/23 16:46 01/19/23 17:00 Temperature Pulse Rate 99 91 93 Respiratory Rate 18 29 H 19 Blood Pressure 124/70 Pulse Oximetry Oxygen Delivery 01/19/23 17:01 01/19/23 17:02 01/19/23 17:18 Temperature Pulse Rate 88 84 85 Respiratory Rate 27 H 28 H 24 H Blood Pressure 103/64 Pulse Oximetry Oxygen Delivery 01/19/23 17:30 01/19/23 17:45 01/19/23 18:00 Temperature Pulse Rate 88 77 75 Respiratory Rate 25 H 21 H 23 H Blood Pressure Pulse Oximetry Oxygen Delivery 01/19/23 18:15 01/19/23 18:30 01/19/23 18:43 Temperature Pulse Rate 71 88 82 Respiratory Rate 17 24 H 24 H Blood Pressure 121/74 Pulse Oximetry Oxygen Delivery 01/19/23 18:45 01/19/23 18:46 01/19/23 19:00 Temperature Pulse Rate 73 82 85 Respiratory Rate 28 H 20 19 Blood Pressure 131/82 Pulse Oximetry Oxygen Delivery 01/19/23 20:10 01/19/23 21:14 01/19/23 22:18 Temperature 37.0 C Pulse Rate 67 84 Respiratory Rate 18 19 Blood Pressure 123/80 137/68 Pulse Oximetry 98 95 Oxygen Delivery Autopap 01/19/23 21:32 01/20/23 04:18 01/20/23 08:30 Temperature 36.1 C L Pulse Rate 101 H Respiratory Rate 18 Blood Pressure 157/71 H Pulse Oximetry 95 94 Oxygen Delivery Room Air Room Air Intake/Output Intake/Output: Intake & Output 01/17/23 01/18/23 01/19/23 01/20/23 23:59 23:59 23:59 23:59 Intake Total 1000 1050 Output Total 200 Balance 1000 850 Meds/Results Medications: Active Medications Generic Name Dose Route Start Last Admin Trade Name Freq PRN Reason Stop Dose Admin Hydralazine HCl 10 mg 01/19/23 23:31 Hydralazine Hcl 20 Mg/Ml Vial IV PUSH Q8H PRN Blood Pressure - High Hydromorphone HCl 0.5 mg 01/19/23 18:59 01/20/23 10:11 Hydromorphone Hcl Inj (*Crx) 1 Mg/Ml Syr IV PUSH 0.5 mg Q4H PRN Administration Pain Rated 7-10 Sodium Chloride 1,000 mls @ 125 mls/hr 01/19/23 19:00 01/20/23 05:18 Normal Saline Iv IV CONT 125 mls/hr .Q8H MAKEDA Administration Ondansetron HCl 4 mg 01/19/23 18:59 01/20/23 10:11 Ondansetron Inj 4 Mg/2 Ml Vial IV PUSH 4 mg Q4H PRN Administration Nausea Radiology Results: ITS Impressions Abdomen/Pelvis CT 01/19/23 14:38 IMPRESSION: 1. Findings consistent with closed loop small bowel obstruction and with possible ischemia of the affe
--- NOTE | 2023-01-20 13:41 | PC.NURSE ---
Switch Cleaner called radiology to confirm what time they could add patient to schedule for a XR fl guid NG tube insertion. Radiology will call back as they are unsure with neha at this time.
[2023-01-20 14:00] VITALS: BP 121/61; PULSE 94; RESP 16; TEMP 37.1; O2SAT 98
[2023-01-20] MEDS: HYDROmorphone HCL INJ (*CRX) 1 MG/ML SYR IV PUSH (14:14)
[2023-01-20] MEDS: LORazepam INJ (*CRX) 2 MG/ML VIAL IV PUSH (14:17)
[2023-01-20 21:15] VITALS: BP 145/76; PULSE 107; RESP 16; TEMP 36.4; O2SAT 94
[2023-01-20 21:26] VITALS: O2SAT 94
[2023-01-21] MEDS: HYDROmorphone HCL INJ (*CRX) 1 MG/ML SYR 0.5 MG IV PUSH ×4 (03:52→20:39)
[2023-01-21] MEDS: SODIUM CHLORIDE 0.9% IV 1,000 ML 125 ML IV CONT ×4 (03:55→20:48)
[2023-01-21] MEDS: ONDANSETRON INJ 4 MG/2 ML VIAL IV PUSH ×3 (03:55→20:42)
[2023-01-21 05:07] VITALS: BP 108/67; PULSE 96; RESP 16; TEMP 36.6; O2SAT 95
--- NOTE | 2023-01-21 10:45 | PM.IMPN ---
Progress Note: A&P Assessment and Plan (1) Bowel obstruction: Onset Date: ~2015 Code(s): K56.609 - Unspecified intestinal obstruction, unspecified as to partial versus complete obstruction Status: Acute Assessment and Plan: Surgery has been consulted continue with analgesics the patient is NPO at this time. NG was placed to suction. Currently on hold. If no residuals after 6 hours then NG may be removed and patient can be started on diet but will defer this decision to general surgery Continue with IV fluids. (2) UTI (urinary tract infection): Code(s): N39.0 - Urinary tract infection, site not specified Status: Acute Assessment and Plan: Patient has no urinary symptoms. Discontinue Rocephin (3) Primary hypertension: Code(s): I10 - Essential (primary) hypertension Status: Acute Assessment and Plan: Atenolol and lisinopril on hold at this time as she is NPO. Continue p.r.n. hydralazine. Subjective Date/time seen: 01/21/23 10:46 Interval history: No nausea vomiting. NG in place Review of Systems Review of Systems: All systems reviewed & are unremarkable except as noted in HPI and below Exam Narrative: NG in place Const: General: cooperative, healthy appearing, comfortable, no acute distress, well developed, awake, Physically active, average body habitus and well nourished Nutritional Appearance: average body habitus and well nourished Orientation/consciousness: oriented to person, oriented to place, oriented to time and patient oriented x3 Limitations: no limitations HENMT: Head: normal to inspection, No palpable skull fracture present, normocephalic and atraumatic Ears: hearing grossly normal bilaterally and external ears normal Face/Nose/Sinus: Normal external nose present ( and nG-tube in place) and Normal nares present Eyes: General: appearance normal, both eyes and all related structures Alignment and Position: alignment normal Periorbital: periorbital findings normal Eyelids: eyelids normal Sclera: sclerae normal Pupils: Equal, round and reactive pupils present and Pupil accommodation reflex normal EOM: EOMs intact bilaterally Neck: Neck: normal visual inspection, full ROM, no lymphadenopathy, trachea midline and supple Chest: Chest palpation & inspection: normal inspection of the chest Resp: Effort & Inspection: normal respiratory effort Auscultation: clear to auscultation bilaterally Cardio: Palpation: normal PMI Rate: regular rate Rhythm: regular rhythm Heart sounds: S1 normal heart sound present and S2 normal heart sound present Peripheral pulses: Peripheral pulses 2+ throughout GI: Inspection: normal to inspection Auscultation: abnormal bowel sounds Rectal Exam: deferred Other: abdomen still slightly distended slightly firm. Back/Spine/Pelvis: Cervical Spine: cervical ROM normal Skin: General skin exam: normal color Lesions: no lesions Rashes: no rashes Trauma: no lacerations or abrasions Wounds: no wounds Hair: normal Nails: normal Neuro: General: oriented to person, oriented to place, oriented to time and patient oriented x3 Cranial nerves: Yes Equal, round and reactive pupils present and Yes Normal hearing present Cognition (Neuro): normal cognition Speech: normal speech Gait exam (Neuro): Normal gait present Motor exam (neuro): 5/5 motor strength present throughout Sensory Exam: normal sensation Extrem: General: normal to inspection Right upper extremity: normal to inspection and shoulder/upper arm Left upper extremity: normal to inspection and shoulder/upper arm Right lower extremity: normal to inspection Left lower extremity: normal to inspection Psych: Appearance: grossly normal Mental Status: mental status grossly normal Speech and movement: Normal speech and movement present Affect: normal affect Attitude: cooperative Thought process: Normal thought process present Thought cont
--- NOTE | 2023-01-21 11:01 | PM.PNGS ---
Progress Note: A&P Assessment and Plan (1) Bowel obstruction: Onset Date: ~2015 Code(s): K56.609 - Unspecified intestinal obstruction, unspecified as to partial versus complete obstruction Status: Acute Assessment and Plan: much improved, exam and Xray this am better, will clamp NG and cont sips/chips for now, will be slow about NG removal given complexity of insertion Subjective Subjective Date/Time Seen: 01/21/23 11:01 Interval history: feels much better, pain and nausea largely resolved, liquid BM x 3 overnight Review of Systems Review of Systems: All systems reviewed & are unremarkable except as noted in HPI and below Exam Const: General: cooperative, comfortable and no acute distress Resp: Auscultation: clear to auscultation bilaterally Cardio: Rate: regular rate Rhythm: regular rhythm GI: Inspection: normal to inspection and non-distended GI Palp: Yes abdominal tenderness, Yes Soft to palpation, Yes Tenderness to palpation present (GI), No Guarding due to palpation present (GI) and No Rigid due to palpation Objective Data Vital Signs Vital Signs: Vital Signs - 24 hr 01/20/23 14:00 01/20/23 21:15 01/20/23 21:26 Temperature 37.1 C 36.4 C L Pulse Rate 94 107 H Respiratory Rate 16 16 Blood Pressure 121/61 145/76 H Pulse Oximetry 98 94 94 Oxygen Delivery Room Air 01/21/23 05:07 Temperature 36.6 C Pulse Rate 96 Respiratory Rate 16 Blood Pressure 108/67 Pulse Oximetry 95 Oxygen Delivery Intake/Output Intake/Output: Intake & Output 01/18/23 01/19/23 01/20/23 01/21/23 23:59 23:59 23:59 23:59 Intake Total 1000 3050 1000 Output Total 650 350 Balance 1000 2400 650 Meds/Results Medications: Active Medications Generic Name Dose Route Start Last Admin Trade Name Freq PRN Reason Stop Dose Admin Hydralazine HCl 10 mg 01/19/23 23:31 Hydralazine Hcl 20 Mg/Ml Vial IV PUSH Q8H PRN Blood Pressure - High Hydromorphone HCl 0.5 mg 01/19/23 18:59 01/21/23 09:10 Hydromorphone Hcl Inj (*Crx) 1 Mg/Ml Syr IV PUSH 0.5 mg Q4H PRN Administration Pain Rated 7-10 Sodium Chloride 1,000 mls @ 125 mls/hr 01/19/23 19:00 01/21/23 07:54 Normal Saline Iv IV CONT 125 mls/hr .Q8H MAKEDA Administration Ondansetron HCl 4 mg 01/19/23 18:59 01/21/23 09:10 Ondansetron Inj 4 Mg/2 Ml Vial IV PUSH 4 mg Q4H PRN Administration Nausea Radiology Results: ITS Impressions Abdomen/Pelvis CT 01/19/23 14:38 IMPRESSION: 1. Findings consistent with closed loop small bowel obstruction and with possible ischemia of the affected small bowel segment. Surgical evaluation is recommended. These findings and recommendations were discussed with Rosina Orellana PA-C in the Emergency Department at 1505 hours on 01/19/2023. NG Tube Placement 01/20/23 16:11 IMPRESSION: 1. Fluoroscopy guided nasogastric tube placement with tip in the distal stomach. 2. Small bowel obstruction. Small Bowel X-Ray 01/20/23 19:35 IMPRESSION: 1. Small bowel obstruction. Abdomen X-Ray 01/21/23 06:12 Impression: NG tube in place. Possible partial small bowel obstruction.
[2023-01-21 14:58] VITALS: BP 167/99; PULSE 112; RESP 18; TEMP 36.6; O2SAT 98
[2023-01-21] MEDS: hydrALAZINE HCL 20 MG/ML VIAL 10 MG IV PUSH (15:33)
[2023-01-21 16:45] VITALS: BP 146/83
[2023-01-21 20:41] VITALS: BP 152/75; PULSE 105; RESP 18; TEMP 37; O2SAT 95
[2023-01-22] MEDS: HYDROmorphone HCL INJ (*CRX) 1 MG/ML SYR 0.5 MG IV PUSH ×4 (02:44→21:27)
[2023-01-22] MEDS: ONDANSETRON INJ 4 MG/2 ML VIAL IV PUSH ×2 (02:45→21:26)
[2023-01-22 04:18] VITALS: BP 144/69; PULSE 102; RESP 16; TEMP 36.2; O2SAT 98
[2023-01-22] MEDS: SODIUM CHLORIDE 0.9% IV 1,000 ML 125 ML IV CONT (06:01)
--- NOTE | 2023-01-22 11:06 | PM.PNGS ---
Progress Note: A&P Assessment and Plan (1) Small bowel obstruction: Code(s): K56.609 - Unspecified intestinal obstruction, unspecified as to partial versus complete obstruction Status: Acute Assessment and Plan: Xray still shows dilated small bowel consistent with obstruction. This appears to be partial since she is having BMs and tolerating clears. She does not want to risk going through NG replacement, therefore will keep NG clamped and in place while slowly advancing diet. Full liquids only today. Will advance tomorrow if tolerating. Repeat Xray tomorrow. Subjective Subjective Date/Time Seen: 01/22/23 11:06 Interval history: Continuing to gradually feel better. Still getting some cramping abdominal pain. Passing flatus and bowels moving. No bloating or nausea with clear liquids while NG clamped. Patient no longer feels that she needs to be transferred to [facility] and is comfortable with her care here. Exam GI: Inspection: non-distended GI Palp: Yes Soft to palpation, Yes Tenderness to palpation present (GI) (minimal lower abd), No Guarding due to palpation present (GI) and No Rebound tenderness present Auscultation: normal bowel sounds and no high pitched sounds Objective Data Vital Signs Vital Signs: Vital Signs - 24 hr 01/21/23 14:58 01/21/23 16:45 01/21/23 20:41 Temperature 36.6 C 37.0 C Pulse Rate 112 H 105 H Respiratory Rate 18 18 Blood Pressure 167/99 H 146/83 H 152/75 H Pulse Oximetry 98 95 Oxygen Delivery 01/21/23 20:00 01/22/23 04:18 Temperature 36.2 C L Pulse Rate 102 H Respiratory Rate 16 Blood Pressure 144/69 H Pulse Oximetry 98 Oxygen Delivery Room Air Intake/Output Intake/Output: Intake & Output 01/19/23 01/20/23 01/21/23 01/22/23 23:59 23:59 23:59 23:59 Intake Total 1000 3050 3480 1540 Output Total 650 350 Balance 1000 2400 3130 1540 Meds/Results Medications: Active Medications Generic Name Dose Route Start Last Admin Trade Name Freq PRN Reason Stop Dose Admin Hydralazine HCl 10 mg 01/19/23 23:31 01/21/23 15:33 Hydralazine Hcl 20 Mg/Ml Vial IV PUSH 10 mg Q8H PRN Administration Blood Pressure - High Hydromorphone HCl 0.5 mg 01/19/23 18:59 01/22/23 08:11 Hydromorphone Hcl Inj (*Crx) 1 Mg/Ml Syr IV PUSH 0.5 mg Q4H PRN Administration Pain Rated 7-10 Ondansetron HCl 4 mg 01/19/23 18:59 01/22/23 02:45 Ondansetron Inj 4 Mg/2 Ml Vial IV PUSH 4 mg Q4H PRN Administration Nausea Radiology Results: ITS Impressions Abdomen/Pelvis CT 01/19/23 14:38 IMPRESSION: 1. Findings consistent with closed loop small bowel obstruction and with possible ischemia of the affected small bowel segment. Surgical evaluation is recommended. These findings and recommendations were discussed with Rosina Orellana PA-C in the Emergency Department at 1505 hours on 01/19/2023. NG Tube Placement 01/20/23 16:11 IMPRESSION: 1. Fluoroscopy guided nasogastric tube placement with tip in the distal stomach. 2. Small bowel obstruction. Small Bowel X-Ray 01/20/23 19:35 IMPRESSION: 1. Small bowel obstruction. Abdomen X-Ray 01/22/23 09:14 IMPRESSION: Mid to distal small bowel obstruction is suggested NG tube in stomach
--- NOTE | 2023-01-22 12:00 | PM.IMPN ---
Progress Note: A&P Assessment and Plan (1) Bowel obstruction: Onset Date: ~2015 Code(s): K56.609 - Unspecified intestinal obstruction, unspecified as to partial versus complete obstruction Status: Acute Assessment and Plan: Appears to have resolved. Patient is having bowel movements. Tolerating full liquid diet surgery has been consulted continue with analgesics Full liquid diet. Advance diet as tolerated NG was placed to suction. NG is clamped at the time (2) UTI (urinary tract infection): Code(s): N39.0 - Urinary tract infection, site not specified Status: Acute Assessment and Plan: Patient has no urinary symptoms. Discontinue Rocephin (3) Primary hypertension: Code(s): I10 - Essential (primary) hypertension Status: Acute Assessment and Plan: Atenolol and lisinopril on hold at this time as she is NPO. Continue p.r.n. hydralazine. Subjective Date/time seen: 01/22/23 12:00 Interval history: No abdominal pain. Patient having bowel movements Review of Systems Review of Systems: All systems reviewed & are unremarkable except as noted in HPI and below Exam GI: Inspection: non-distended GI Palp: Yes Soft to palpation, Yes Tenderness to palpation present (GI) (minimal lower abd), No Guarding due to palpation present (GI) and No Rebound tenderness present Auscultation: normal bowel sounds and no high pitched sounds Objective Data Vital Signs Vital Signs: Vital Signs - 24 hr 01/21/23 14:58 01/21/23 16:45 01/21/23 20:41 Temperature 97.8 F 98.6 F Pulse Rate 112 H 105 H Respiratory Rate 18 18 Blood Pressure 167/99 H 146/83 H 152/75 H Pulse Oximetry 98 95 Oxygen Delivery 01/21/23 20:00 01/22/23 04:18 Temperature 97.2 F L Pulse Rate 102 H Respiratory Rate 16 Blood Pressure 144/69 H Pulse Oximetry 98 Oxygen Delivery Room Air Intake/Output Intake/Output: Intake & Output 01/19/23 01/20/23 01/21/23 01/22/23 23:59 23:59 23:59 23:59 Intake Total 1000 / 1000 3050 / 3050 3480 / 3480 1540 / 1540 Output Total 650 / 650 350 / 350 Balance 1000 / 1000 2400 / 2400 3130 / 3130 1540 / 1540 Meds/Results Medications: Active Medications Generic Name Dose Route Start Last Admin Trade Name Freq PRN Reason Stop Dose Admin Hydralazine HCl 10 mg 01/19/23 23:31 01/21/23 15:33 Hydralazine Hcl 20 Mg/Ml Vial IV PUSH 10 mg Q8H PRN Administration Blood Pressure - High Hydromorphone HCl 0.5 mg 01/19/23 18:59 01/22/23 08:11 Hydromorphone Hcl Inj (*Crx) 1 Mg/Ml Syr IV PUSH 0.5 mg Q4H PRN Administration Pain Rated 7-10 Ondansetron HCl 4 mg 01/19/23 18:59 01/22/23 02:45 Ondansetron Inj 4 Mg/2 Ml Vial IV PUSH 4 mg Q4H PRN Administration Nausea Radiology Results: ITS Impressions Abdomen/Pelvis CT 01/19/23 14:38 IMPRESSION: 1. Findings consistent with closed loop small bowel obstruction and with possible ischemia of the affected small bowel segment. Surgical evaluation is recommended. These findings and recommendations were discussed with Rosina Orellana PA-C in the Emergency Department at 1505 hours on 01/19/2023. NG Tube Placement 01/20/23 16:11 IMPRESSION: 1. Fluoroscopy guided nasogastric tube placement with tip in the distal stomach. 2. Small bowel obstruction. Small Bowel X-Ray 01/20/23 19:35 IMPRESSION: 1. Small bowel obstruction. Abdomen X-Ray 01/22/23 09:14 IMPRESSION: Mid to distal small bowel obstruction is suggested NG tube in stomach
[2023-01-22 14:33] VITALS: BP 164/78; PULSE 116; RESP 18; TEMP 36.6; O2SAT 95
[2023-01-22 20:08] VITALS: BP 165/93; PULSE 108; RESP 20; TEMP 36.8; O2SAT 97
[2023-01-22 20:37] VITALS: O2SAT 95
[2023-01-22] MEDS: hydrALAZINE HCL 20 MG/ML VIAL 10 MG IV PUSH (21:25)
[2023-01-23] MEDS: ONDANSETRON INJ 4 MG/2 ML VIAL IV PUSH (02:48)
[2023-01-23] MEDS: HYDROmorphone HCL INJ (*CRX) 1 MG/ML SYR 0.5 MG IV PUSH ×3 (02:48→22:21)
[2023-01-23 04:19] VITALS: BP 153/87; PULSE 112; RESP 16; TEMP 36.4; O2SAT 94
[2023-01-23] MEDS: polyethylene glycoL 3350 17 GM POWD.PACK PO (09:48)
--- NOTE | 2023-01-23 10:39 | PM.IMPN ---
Progress Note: A&P Assessment and Plan (1) Bowel obstruction: Onset Date: ~2015 Code(s): K56.609 - Unspecified intestinal obstruction, unspecified as to partial versus complete obstruction Status: Acute Assessment and Plan: Patient is having bowel movements. Tolerating full liquid diet. surgery has been consulted continue with analgesics Full liquid diet. Advance diet as tolerated NG was placed to suction. NG is clamped at the time Further management per General surgery (2) UTI (urinary tract infection): Code(s): N39.0 - Urinary tract infection, site not specified Status: Acute Assessment and Plan: Patient has no urinary symptoms. Discontinue Rocephin (3) Primary hypertension: Code(s): I10 - Essential (primary) hypertension Status: Acute Assessment and Plan: Resume home meds Subjective Date/time seen: 01/23/23 10:39 Interval history: Patient states he had some abdominal distention and bloating last night Review of Systems Review of Systems: All systems reviewed & are unremarkable except as noted in HPI and below Exam Const: General: comfortable and no acute distress HENMT: Ears: TM's normal bilaterally Mouth: Yes moist mucous membranes Eyes: General: appearance normal, both eyes and all related structures Resp: Effort & Inspection: normal respiratory effort Cardio: Rate: regular rate GI: Inspection: non-distended GI Palp: Yes Soft to palpation, Yes Tenderness to palpation present (GI) (minimal lower abd), No Guarding due to palpation present (GI) and No Rebound tenderness present Auscultation: normal bowel sounds and no high pitched sounds Skin: General skin exam: normal color Neuro: General: gait normal and deep tendon reflexes 2+ bilaterally Extrem: General: normal to inspection Objective Data Vital Signs Vital Signs: Vital Signs - 24 hr 01/22/23 14:33 01/22/23 20:08 01/22/23 20:37 Temperature 97.8 F 98.3 F Pulse Rate 116 H 108 H Respiratory Rate 18 20 Blood Pressure 164/78 H 165/93 H Pulse Oximetry 95 97 95 Oxygen Delivery Room Air 01/22/23 20:00 01/23/23 04:19 Temperature 97.6 F Pulse Rate 112 H Respiratory Rate 16 Blood Pressure 153/87 H Pulse Oximetry 94 Oxygen Delivery Room Air Intake/Output Intake/Output: Intake & Output 01/20/23 01/21/23 01/22/23 01/23/23 23:59 23:59 23:59 23:59 Intake Total 3050 / 3050 3480 / 3480 2200 / 2200 400 / 400 Output Total 650 / 650 350 / 350 Balance 2400 / 2400 3130 / 3130 2200 / 2200 400 / 400 Meds/Results Medications: Active Medications Generic Name Dose Route Start Last Admin Trade Name Freq PRN Reason Stop Dose Admin Hydralazine HCl 10 mg 01/19/23 23:31 01/22/23 21:25 Hydralazine Hcl 20 Mg/Ml Vial IV PUSH 10 mg Q8H PRN Administration Blood Pressure - High Hydromorphone HCl 0.5 mg 01/19/23 18:59 01/23/23 02:48 Hydromorphone Hcl Inj (*Crx) 1 Mg/Ml Syr IV PUSH 0.5 mg Q4H PRN Administration Pain Rated 7-10 Ondansetron HCl 4 mg 01/19/23 18:59 01/23/23 02:48 Ondansetron Inj 4 Mg/2 Ml Vial IV PUSH 4 mg Q4H PRN Administration Nausea Polyethylene Glycol 17 gm 01/23/23 09:00 01/23/23 09:48 Polyethylene Glycol 3350 17 Gm Powd.Pack PO 17 gm QAM MAKEDA Administration Radiology Results: ITS Impressions Abdomen/Pelvis CT 01/19/23 14:38 IMPRESSION: 1. Findings consistent with closed loop small bowel obstruction and with possible ischemia of the affected small bowel segment. Surgical evaluation is recommended. These findings and recommendations were discussed with Rosina Orellana PA-C in the Emergency Department at 1505 hours on 01/19/2023. NG Tube Placement 01/20/23 16:11 IMPRESSION: 1. Fluoroscopy guided nasogastric tube placement with tip in the distal stomach. 2. Small bowel obstruction. Small Bowel X-Ray 01/20/23 19:35 IMPRESSION: 1. Small bowel obstruction.
--- NOTE | 2023-01-23 11:57 | PM.PNGS ---
Progress Note: A&P Assessment and Plan (1) Small bowel obstruction: Code(s): K56.609 - Unspecified intestinal obstruction, unspecified as to partial versus complete obstruction Status: Acute Assessment and Plan: I am concerned that patient still has obstruction. Having some bloating now that she's on full liquids. Bowels are however still moving. Will see how she does today, but if she is becoming more distended or in more pain tomorrow, might have to consider surgical exploration. Will repeat KUB in AM. Place NG back to suction if patient becomes nauseated or vomits. Subjective Subjective Date/Time Seen: 01/23/23 11:57 Interval history: Patient still feeling some bloating and abdominal pain. Bowels moving and passing some flatus. Exam GI: Inspection: distended GI Palp: Yes Tenderness to palpation present (GI) (RUQ and lower abdomen) Auscultation: normal bowel sounds and no hyperactive bowel sounds Objective Data Vital Signs Vital Signs: Vital Signs - 24 hr 01/22/23 14:33 01/22/23 20:08 01/22/23 20:37 Temperature 36.6 C 36.8 C Pulse Rate 116 H 108 H Respiratory Rate 18 20 Blood Pressure 164/78 H 165/93 H Pulse Oximetry 95 97 95 Oxygen Delivery Room Air 01/22/23 20:00 01/23/23 04:19 Temperature 36.4 C Pulse Rate 112 H Respiratory Rate 16 Blood Pressure 153/87 H Pulse Oximetry 94 Oxygen Delivery Room Air Intake/Output Intake/Output: Intake & Output 01/20/23 01/21/23 01/22/23 01/23/23 23:59 23:59 23:59 23:59 Intake Total 3050 3480 2200 400 Output Total 650 350 Balance 2400 3130 2200 400 Meds/Results Medications: Active Medications Generic Name Dose Route Start Last Admin Trade Name Freq PRN Reason Stop Dose Admin Acetaminophen 650 mg 01/23/23 10:41 Acetaminophen 325 Mg Tablet PO Q6H PRN Mild Pain (1-3) or Fever Atenolol 25 mg 01/23/23 17:00 Atenolol 25 Mg Tablet PO BID MAKEDA Hydromorphone HCl 0.5 mg 01/23/23 11:53 Hydromorphone Hcl Inj (*Crx) 1 Mg/Ml Syr IV PUSH Q3H PRN Breakthrough Pain Lisinopril 10 mg 01/24/23 09:00 Lisinopril 10 Mg Tablet PO DAILY [facility] Ondansetron HCl 4 mg 01/19/23 18:59 01/23/23 02:48 Ondansetron Inj 4 Mg/2 Ml Vial IV PUSH 4 mg Q4H PRN Administration Nausea Polyethylene Glycol 17 gm 01/23/23 09:00 01/23/23 09:48 Polyethylene Glycol 3350 17 Gm Powd.Pack PO 17 gm QAM MAKEDA Administration Radiology Results: ITS Impressions Abdomen/Pelvis CT 01/19/23 14:38 IMPRESSION: 1. Findings consistent with closed loop small bowel obstruction and with possible ischemia of the affected small bowel segment. Surgical evaluation is recommended. These findings and recommendations were discussed with Rosina Orellana PA-C in the Emergency Department at 1505 hours on 01/19/2023. NG Tube Placement 01/20/23 16:11 IMPRESSION: 1. Fluoroscopy guided nasogastric tube placement with tip in the distal stomach. 2. Small bowel obstruction. Small Bowel X-Ray 01/20/23 19:35 IMPRESSION: 1. Small bowel obstruction. Abdomen X-Ray 01/23/23 07:38 IMPRESSION: 1. Mildly dilated small bowel, decreased in size compared with prior studies, consistent with at least partial small bowel obstruction. 2: Left basilar atelectasis. 3: Small left pleural effusion.
[2023-01-23 14:00] VITALS: BP 137/86; PULSE 98; RESP 14; TEMP 36.3; O2SAT 96
[2023-01-23 17:46] VITALS: PULSE 111
[2023-01-23] MEDS: atenoloL 25 MG TABLET PO (17:46)
[2023-01-23 20:56] VITALS: BP 151/87; PULSE 101; RESP 18; TEMP 37.1; O2SAT 96
[2023-01-24 04:06] VITALS: BP 156/89; PULSE 95; RESP 16; TEMP 37.1; O2SAT 96
[2023-01-24 05:30] LABS: Hematocrit 33.6 % (37.0-47.0); Hemoglobin 10.9 g/dL (12.0-15.0); Mean Corpuscular HGB Conc 32.4 g/dl (32-36); Mean Corpuscular Hemoglobin 29.1 pg (26-34); Mean Corpuscular Volume 89.6 fl (80-100); Mean Platelet Volume 9.3 fl (7.4-10.4); Platelet Count Result 296 k/mm3 (150-375); Red Blood Count 3.75 M/mm3 (4.2-5.4); Red Cell Distribution Width 13.5 % (11.5-14.5); White Blood Count 7.8 K/mm3 (4.5-10.0)
[2023-01-24 05:38] LABS: Lactic Acid Reflex 0.9 mmol/L (0.7-2.0)
[2023-01-24 05:43] LABS: Anion Gap 6 mmol/L (8-16); Blood Urea Nitrogen 5 mg/dL (7-17); Calcium 7.5 mg/dL (8.4-10.2); Carbon Dioxide 26 mmol/L (22-30); Chloride 105 mmol/L (98-107); Estimated CRCL calculation 70 ml/min; Estimated Glomerular Filt Rate > 60; Glucose 110 mg/dL (65-110); Potassium 2.8 mmol/L (3.4-5.0); Sodium 137 mmol/L (137-145)
--- NOTE | 2023-01-24 05:57 | PC.NURSE ---
NOTIFIED MAIN LAB TO ADD MAGNESIUM TO CURRENT BLOOD SAMPLE.
[2023-01-24 06:04] LABS: Magnesium 1.4 mg/dL (1.6-2.3)
[2023-01-24] MEDS: POTASSIUM CHLORIDE 20 MEQ PACKET (FOR LIQUID) 80 MEQ PO (06:25)
[2023-01-24 08:37] VITALS: BP 147/89; PULSE 100
[2023-01-24] MEDS: ACETAMINOPHEN 325 MG TABLET 650 MG PO (08:39)
[2023-01-24] MEDS: polyethylene glycoL 3350 17 GM POWD.PACK PO (08:39)
[2023-01-24 08:40] VITALS: PULSE 100
[2023-01-24] MEDS: lisinopriL 10 MG TABLET PO (08:40)
[2023-01-24] MEDS: atenoloL 25 MG TABLET PO (08:40)
--- NOTE | 2023-01-24 09:52 | PM.DS ---
DS: Admitting Diagnosis Discharge Date 01/24/2023 Admitting Diagnosis Small-bowel obstruction DS: Discharge Diagnosis Discharge Diagnosis (1) Bowel obstruction: Onset Date: ~2015 Code(s): K56.609 - Unspecified intestinal obstruction, unspecified as to partial versus complete obstruction Status: Acute DS: Summary Hospital Course Hospital Course: (1) Bowel obstruction: ?Onset Date:?~2015 ?Code(s): K56.609 - Unspecified intestinal obstruction, unspecified as to partial versus complete obstruction ?Status:?Acute ?Assessment and Plan: Patient is having bowel movements.? Tolerating full liquid diet. surgery has been consulted ?continue with analgesics NG to be removed presently surgery instructions. Patient tolerates regular diet after that she can be discharged home (2) UTI (urinary tract infection): ?Code(s): N39.0 - Urinary tract infection, site not specified ?Status:?Acute ?Assessment and Plan: ? Patient has no urinary symptoms.? Discontinue Rocephin (3) Primary hypertension: ?Code(s): I10 - Essential (primary) hypertension ?Status:?Acute ?Assessment and Plan: Resume home meds Time Spent with Patient Time attestation: Total time spent providing and/or coordinating discharge services: DS: Data Data Completed and Pending Labs on day of discharge: Labs from last 24 hours 01/24/23 01/24/23 05:19 05:16 WBC 7.8 RBC 3.75 L Hgb 10.9 L Hct 33.6 L MCV 89.6 MCH 29.1 MCHC 32.4 RDW 13.5 Plt Count 296 MPV 9.3 Sodium 137 Potassium 2.8 L* Chloride 105 Carbon Dioxide 26 Anion Gap 6 L BUN 5 L D Creatinine 0.50 L Estim Creat Clear Calc 70 Estimated GFR > 60 Glucose 110 Lactic Acid 0.9 Calcium 7.5 L Magnesium 1.4 L Preliminary micro results at discharge 01/20/23 00:19 Blood Culture - Preliminary Blood 01/20/23 00:19 Blood Culture - Preliminary Blood Discharge Plan Discharge Consulting providers: Eleni Mason; Rosina Orellana Discharging Clinician: Olayinka Clark Anticipated Discharge Date/Time: 01/24/23 09:51 Patient Disposition: Home, Self-Care Activity: no preference Diet: heart healthy Patient Instructions: Antibiotic Form, Full Liquid Diet (GEN) Stand Alone Forms: General Discharge Information Follow-up/Referrals: Stanley Donaldson MD [Primary Care Provider] - Discharge Medications: Continued atenolol 25 mg tablet 25 mg PO BID lisinopril 10 mg tablet 10 mg PO DAILY meloxicam 7.5 mg tablet 7.5 mg PO BID Date of admission: 01/19/23 19:00 Primary Care Provider: Stanley Donaldson Admitting Provider: Yuniel Douglas Attending physician on admission: Olayinka Clark Condition: Stable
--- NOTE | 2023-01-24 10:12 | PM.PNGS ---
Progress Note: A&P Assessment and Plan (1) Small bowel obstruction: Code(s): K56.609 - Unspecified intestinal obstruction, unspecified as to partial versus complete obstruction Status: Acute Assessment and Plan: Patient has been on full liquids and now had 2 soft regular meals. Xray shows improvement. Will remove NG this morning. OK to discharge if tolerating solid diet for lunch. Subjective Subjective Date/Time Seen: 01/24/23 10:12 Interval history: Tolerating soft diet. Still getting some cramping abdominal pain at times. No nausea or vomiting. NG tube remains clamped. Exam GI: Inspection: non-distended GI Palp: Yes Tenderness to palpation present (GI) (RUQ and lower abdomen) Auscultation: normal bowel sounds and no hyperactive bowel sounds Objective Data Vital Signs Vital Signs: Vital Signs - 24 hr 01/23/23 14:00 01/23/23 17:46 01/23/23 20:56 Temperature 36.3 C L 37.1 C Pulse Rate 98 111 H 101 H Respiratory Rate 14 18 Blood Pressure 137/86 151/87 H Pulse Oximetry 96 96 Oxygen Delivery 01/23/23 20:00 01/24/23 04:06 01/24/23 08:40 Temperature 37.1 C Pulse Rate 95 100 Respiratory Rate 16 Blood Pressure 156/89 H Pulse Oximetry 96 Oxygen Delivery Room Air 01/24/23 08:37 01/24/23 08:40 Temperature Pulse Rate 100 Respiratory Rate Blood Pressure 147/89 H Pulse Oximetry Oxygen Delivery Room Air Intake/Output Intake/Output: Intake & Output 01/21/23 01/22/23 01/23/23 01/24/23 23:59 23:59 23:59 23:59 Intake Total 3480 2200 1260 490 Output Total 350 Balance 3130 2200 1260 490 Meds/Results Medications: Active Medications Generic Name Dose Route Start Last Admin Trade Name Freq PRN Reason Stop Dose Admin Acetaminophen 650 mg 01/23/23 10:41 01/24/23 08:39 Acetaminophen 325 Mg Tablet PO 650 mg Q6H PRN Administration Mild Pain (1-3) or Fever Atenolol 25 mg 01/23/23 17:00 01/24/23 08:40 Atenolol 25 Mg Tablet PO 25 mg BID MAKEDA Administration Hydromorphone HCl 0.5 mg 01/23/23 11:53 01/23/23 22:21 Hydromorphone Hcl Inj (*Crx) 1 Mg/Ml Syr IV PUSH 0.5 mg Q3H PRN Administration Breakthrough Pain Lisinopril 10 mg 01/24/23 09:00 01/24/23 08:40 Lisinopril 10 Mg Tablet PO 10 mg DAILY MAKEDA Administration Ondansetron HCl 4 mg 01/19/23 18:59 01/23/23 02:48 Ondansetron Inj 4 Mg/2 Ml Vial IV PUSH 4 mg Q4H PRN Administration Nausea Polyethylene Glycol 17 gm 01/23/23 09:00 01/24/23 08:39 Polyethylene Glycol 3350 17 Gm Powd.Pack PO 17 gm QAM MAKEDA Administration Radiology Results: ITS Impressions Abdomen/Pelvis CT 01/19/23 14:38 IMPRESSION: 1. Findings consistent with closed loop small bowel obstruction and with possible ischemia of the affected small bowel segment. Surgical evaluation is recommended. These findings and recommendations were discussed with Rosina Orellana PA-C in the Emergency Department at 1505 hours on 01/19/2023. NG Tube Placement 01/20/23 16:11 IMPRESSION: 1. Fluoroscopy guided nasogastric tube placement with tip in the distal stomach. 2. Small bowel obstruction. Small Bowel X-Ray 01/20/23 19:35 IMPRESSION: 1. Small bowel obstruction. Abdomen X-Ray 01/24/23 07:30 IMPRESSION: 1: Improving small bowel distention, likely resolving ileus or partial small bowel obstruction.. Labs Labs: Laboratory Results - last 24 hr 01/24/23 01/24/23 05:16 05:19 WBC 7.8 RBC 3.75 L Hgb 10.9 L Hct 33.6 L MCV 89.6 MCH 29.1 MCHC 32.4 RDW 13.5 Plt Count 296 MPV 9.3 Sodium 137 Potassium 2.8 L* Chloride 105 Carbon Dioxide 26 Anion Gap 6 L BUN 5 L D Creatinine 0.50 L Estim Creat Clear Calc 70 Estimated GFR > 60 Glucose 110 Lactic Acid 0.9 Calcium 7.5 L Magnesium 1.4 L
== END 2023-01-24 13:35 | disposition home or self-care (01) | DRG 389 ==
LOC: ANHED 16:13 → ANH3MED 20:34
PROVIDERS: Emergency Medicine; Internal Medicine; Nurse Practitioner; Surgery; Admitting Provider Internal Medicine; Emergency Provider Physician Assistant; PCP Family Medicine; Visit Provider Hospitalist
DX: K56.600 Partial intestinal obstruction, unspecified as to cause (principal); N39.0 Urinary tract infection, site not specified; E03.9 Hypothyroidism, unspecified; I10 Essential (primary) hypertension; Z85.3 Personal history of malignant neoplasm of breast; Z92.21 Personal history of antineoplastic chemotherapy; Z92.3 Personal history of irradiation; Z90.710 Acquired absence of both cervix and uterus; Z87.891 Personal history of nicotine dependence
CPT/HCPCS: 36415; 74018; 74019; 74177; 74250; 80048; 80053; 81001; 83605; 83690; 83735; 84439; 84443; 84480; 85025; 85027; 87040; 87086; 96361; 96374; 96375; 96376; 99285; A9270; C1769; J0360; J0696; J1170; J2060; J2405; J7030; Q9967

== ENCOUNTER 2023-02-24 13:37 | Outpatient (CLI) | payer MEDICARE, OTHER, SELFPAY ==
--- NOTE | ~2023-02-24 | MR_ITS ---
EXAMINATION: MR lumbar spine wo con DATE: 02/24/2023 14:10 INDICATION: Low back pain, unspecified. TECHNIQUE: Magnetic resonance imaging (MRI) of the lumbar spine was performed without intravenous con trast. Sequences included sagittal T2-weighted FSE, sagittal T2-weighted FS FSE, sagittal T1-weighted FSE, and axial T2-weighted FSE. COMPARISON: None FINDINGS: There is 9 degrees levocurvature of lumbar spine. There is 3 mm anterolisthesis of L3 on L4 and 6 mm anterolisthesis of L4 on L5. Vertebral body heights are normal. There is mildly decreased d isc height at L3-L4. There is severely decreased disc height at L4-L5 with endplate remodeling. The d istal spinal cord signal intensity is normal. The conus medullaris is at L1-L2. The following disc le vels are specifically discussed: L1-L2: There is a central protrusion. There is mild bilateral facet joint osteoarthritis. There is no neural foraminal stenosis. There is mild central canal stenosis. L2-L3: The disc is bulging. There is moderate bilateral facet joint osteoarthritis. There is mild lef t neural foraminal stenosis. There is mild central canal stenosis. L3-L4: The disc is bulging. There is severe bilateral facet joint osteoarthritis. There is mild bilat eral neural foraminal stenosis. There is mild central canal stenosis. L4-L5: The disc is bulging and has an annular fissure. There is severe bilateral facet joint osteoart hritis. There is moderate right and mild left neural foraminal stenosis. There is mild central canal stenosis. There is moderate stenosis of the lateral recesses. L5-S1: The disc is bulging and has an annular fissure. There is severe bilateral facet joint osteoart hritis. There is mild bilateral neural foraminal stenosis. There is mild central canal stenosis. IMPRESSION: 1. Severe lumbar spondylosis. Reviewed, dictated and finalized at location E.
== END 2023-02-24 13:38 | disposition home or self-care (01) ==
PROVIDERS: PCP Nurse Practitioner Family; Visit Provider Family Medicine
DX: M47.896 Other spondylosis, lumbar region (principal)
CPT/HCPCS: 72148

== ENCOUNTER → 2023-06-09 10:47 | Outpatient (CLI) | payer MEDICARE, OTHER, SELFPAY ==
--- NOTE | ~2023-06-09 | US_ITS ---
EXAMINATION: US thyroid DATE: 06/09/2023 11:04 INDICATION: Abnormal results of thyroid function studies. TECHNIQUE: Multiple ultrasound images of the thyroid were obtained. COMPARISON: Ultrasound 06/06/2019 FINDINGS: The right thyroid lobe measures 5.0 x 1.8 x 1.9 cm. The left thyroid lobe measures 5.0 x 1.7 x 1.7 c m. In the right thyroid lobe, there is a 5 mm solid, hypoechoic, wider than tall nodule with smooth margin without echogenic foci (TI-RADS TR4). In the right thyroid lobe, there is a 3 mm nodule. IMPRESSION: 1. Small thyroid nodules, likely not clinically significant. No follow-up is needed. Reviewed, dictated and finalized at location E. IMPRESSION: 1. Small thyroid nodules, likely not clinically significant. No follow-up is ne eded.
== END ==
PROVIDERS: PCP Family Medicine; Visit Provider Internal Medicine
DX: R94.6 Abnormal results of thyroid function studies (principal); E04.2 Nontoxic multinodular goiter
CPT/HCPCS: 76536

== ENCOUNTER → 2023-08-21 08:27 | Outpatient (CLI) | payer MEDICARE, OTHER, SELFPAY ==
--- NOTE | ~2023-08-21 | MR_ITS ---
EXAMINATION: MR pelvis wo con DATE: 08/21/2023 09:22 INDICATION: Sacroiliitis. Low back pain. Right hip pain. TECHNIQUE: Magnetic resonance imaging (MRI) of the pelvis was performed without intravenous contrast. COMPARISON: Abdomen radiograph 01/24/2023 FINDINGS: There is lumbar levocurvature. There is 4 mm anterolisthesis of L4 on L5 and 3 mm anterolisthesis of L3 on L4. There is severe lumbar spondylosis, worst at L4-L5. There is mild osteoarthritis of the sac roiliac joints. There is moderate osteoarthritis of the hips. There are bilateral hip joint effusions . The gluteus minimus and gluteus medius tendons are normal. The iliopsoas tendons are normal. There is mild tendinopathy of the hamstring origins bilaterally. There is mild bilateral trochanteric bursi tis. IMPRESSION: 1. Mild osteoarthritis of the sacral iliac joints. No evidence of inflammatory arthropathy. 2. Severe lumbar spondylosis. 3. Moderate osteoarthritis of the hips. 4. Bilateral hip joint effusions. 5. Mild bilateral trochanteric bursitis. Reviewed, dictated and finalized at location A. PROFESSOR
== END ==
PROVIDERS: PCP Physical Medicine & Rehabilitation; Visit Provider Physical Medicine & Rehabilitation
DX: M46.1 Sacroiliitis, not elsewhere classified (principal); M47.896 Other spondylosis, lumbar region; M25.451 Effusion, right hip; M25.452 Effusion, left hip; M16.0 Bilateral primary osteoarthritis of hip; M70.61 Trochanteric bursitis, right hip; M70.62 Trochanteric bursitis, left hip
CPT/HCPCS: 72195

== ENCOUNTER 2023-08-21 09:54 | Outpatient (CLI) | payer MEDICARE, OTHER, SELFPAY ==
[2023-08-21 10:57] LABS: Alanine Aminotransferase 21 U/L (6-35); Albumin Level 4.6 g/dL (3.5-5.1); Alkaline Phosphatase 122 U/L (38-126); Anion Gap 13 mmol/L (8-16); Aspartate Amino Transferase 31 U/L (14-36); Bilirubin,Total 0.6 mg/dL (0.2-1.3); Blood Urea Nitrogen 27 mg/dL (7-17); Calcium 9.9 mg/dL (8.4-10.2); Carbon Dioxide 24 mmol/L (22-30); Chloride 97 mmol/L (98-107); Estimated Glomerular Filt Rate > 60; Glucose 122 mg/dL (65-110); Potassium 4.4 mmol/L (3.4-5.0); Sodium 134 mmol/L (137-145)
[2023-08-21 11:10] LABS: Free T4 Free Thyroxine 1.75 ng/mL (0.78-2.19)
[2023-08-21 11:23] LABS: Thyroid Stimulating Hormone 0.765 uIU/mL (0.465-4.680)
[2023-08-24 01:29] LABS: Thyroid Peroxidase Antibodies <1 IU/mL (<9)
[2023-08-25 13:39] LABS: Thyrotropin Receptor Antibody <1.00 IU/L (<=2.00)
[2023-08-25 14:09] LABS: Thyroid Stimulating Immunoglob <89 % baseline (<140)
== END 2023-08-21 09:55 | disposition home or self-care (01) ==
LOC: ANHLAB 09:57
PROVIDERS: PCP Family Medicine; Visit Provider Internal Medicine
DX: E87.6 Hypokalemia (principal); I10 Essential (primary) hypertension; R94.6 Abnormal results of thyroid function studies; E04.1 Nontoxic single thyroid nodule
CPT/HCPCS: 36415; 80053; 83519; 84439; 84443; 84445; 86376

== ENCOUNTER 2023-09-08 10:15 | Outpatient (RCR) | payer MEDICARE, OTHER, SELFPAY ==
--- NOTE | 2023-06-15 10:09 | OPREHPOC ---
Outpatient Therapy Plan of Care This is a Multidisciplinary Plan of Care that may contain components documented by all disciplines (PT, OT, and ST.) PT Problem 1 PT Problem #1 Knowledge Deficit PT Goal 1 Goal Independent with core stabilization and hip mobility program Target Visit 4 PT Problem 2 PT Problem #2 Pain PT Goal 1 Goal Reports no pain with ambulation of 1 mile to return to functional walking program Target Visit 8 PT Problem 3 PT Problem #3 Impaired Range of Motion PT Goal 1 Goal Improve maddison HS 90/90 ROM to -20 degrees to reduce posterior pelvic pull during squatting activity Target Visit 8 PT Goal 2 Goal Patient will demonstrate pain free mild restriction of L piriformis to reduce sciatic pressure and improve hip internal rotation to improve functional walking and squatting activity Target Visit 8 PT Problem 4 PT Problem #4 Impaired Gait PT Goal 1 Goal Patient will ambulate with even stride length bilaterally for 600' with no noted external rotation of left foot Target Visit 8
--- NOTE | 2023-06-15 10:10 | PTOPEVAL1 ---
Assessment and note entered by Sabas Madrid, PT Evaluation Information Assessment Status Evaluation Diagnosis Low back pain, Right hip pain Onset March 2023 Subjective Information Reports that she had a fall this summer and saw a slow steady progress in increased pain since. She had an MRI indicating bulging discs. No longer having radicular pain at this time. She is R handed. Sleeps on her left side at night. She takes Tramadol as needed at night for pain. She was walking 10 miles a day and can hardly walk a mile now due to incresed pain. Reported Pain Level Pain Score 2: Self Report Assessment PT Clinical Summary Patient presents with signs and symptoms consistent with both stenotic R sided restrictions and discogenetic type L sided symptoms. She has severely limited hip mobility translating a lot of extra motion and stress to lumbar spine. Will benefit from skilled therapy to address these deicits. Plan of Care PT Services Indicated Yes Treatment Frequency and 2x/week for 4 weeks Duration These treatments will address the objective and functional deficits as defined above. The patient will be advanced safely and appropriately in order for the patient to progress towards his/her prior level of function. Additional exercises will be introduced and as well as a comprehensive home exercise program upon discharge, if needed, ?to ensure carryover of functional gains achieved in the clinic. This treatment plan has been reviewed and agreement upon by the patient.
--- NOTE | 2023-07-13 11:27 | PCPTNOTE ---
Patient cancelled today's progress visit secondary to conflicting appointments.
--- NOTE | 2023-07-23 12:38 | PTOPPROG ---
Assessment and note entered by Sabas Madrid, PT Evaluation Information Assessment Status Progress Diagnosis Low back pain, Right hip pain Onset March 2023 Subjective Information Reports that overall she feel her hips doing a lot better. She is still having pain in the hips, mostly on the right side at this time. She is doing better on stairs and not feeling quite as uncertain with navigation. Minimal pain with stairs. She is still having some cramping in thighs. Assessment PT Clinical Summary Patient has seen ROM and strength progress but continues to show functional hip weakness and difficulty with ADL performance. Overall we have seen progress in all of these goals. She will continue to benefit from skilled therapy to address these deficits moving forward to maximize function without pain. Plan of Care PT Services Indicated Yes Treatment Frequency and 2x/week for 4 weeks Duration These treatments will address the objective and functional deficits as defined above. The patient will be advanced safely and appropriately in order for the patient to progress towards his/her prior level of function. Additional exercises will be introduced and as well as a comprehensive home exercise program upon discharge, if needed, ?to ensure carryover of functional gains achieved in the clinic. This treatment plan has been reviewed and agreement upon by the patient.
--- NOTE | 2023-07-23 12:39 | OPREHPOC ---
Outpatient Therapy Plan of Care This is a Multidisciplinary Plan of Care that may contain components documented by all disciplines (PT, OT, and ST.) PT Problem 1 PT Problem #1 Knowledge Deficit PT Goal 1 Goal Independent with core stabilization and hip mobility program Target Visit 4 Progress Met PT Problem 2 PT Problem #2 Pain PT Goal 1 Goal Reports no pain with ambulation of 1 mile to return to functional walking program Target Visit 8 Progress Partially Met Comment Improving but still some limitation PT Problem 3 PT Problem #3 Impaired Range of Motion PT Goal 1 Goal Improve maddison HS 90/90 ROM to -20 degrees to reduce posterior pelvic pull during squatting actvity Target Visit 8 Progress Partially Met Comment Improved maddison PT Goal 2 Goal Patient will demonstrate pain free mild restriction of L piriformis to reduce sciatic pressure and improve hip internal rotation to improve functional walking and squatting activity Target Visit 8 Progress Partially Met Comment Improved. No pain with stretching today but still limitation noted PT Problem 4 PT Problem #4 Impaired Gait PT Goal 1 Goal Patient will ambulate with even stride length bilaterally for 600' with no noted external rotation of left foot Target Visit 8 Progress Partially Met Comment Improved stride but still lacking full terminal stance
--- NOTE | 2023-08-20 10:50 | PTOPPROG ---
Assessment and note entered by Sabas Madrid, PT Evaluation Information Assessment Status Progress Diagnosis Low back pain, Right hip pain Onset March 2023 Subjective Information Reports that since since starting therapy she is remarkably better. Her back is better, her left hip is better, but her right hip has been very painful and tender to the point of her losing sleep at night. She has had trigger point injections that only lasted her about 2 days or so . She is having more pain with standing a long time on the R hip. 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 Assessment PT Clinical Summary We have seen some overall improvement from initial measures. Patient was seeing slow but positive progress, however has seen an unfortunate setback in which she is limited by R hip pain with sciatic type symptoms. She reported overall progress to back and left hip pain which helped with a lot of her functional goals, but R hip pain still limiting function and quality of life. She is slated for an MRI tomorrow to assess hip and pelvis for potential worsening of symptom or new onset of issues. Will continue to benefit from skilled therapy in meantime to address deficits and pain. Plan of Care PT Services Indicated Yes Treatment Frequency and 2x/week for 6 visits Duration These treatments will address the objective and functional deficits as defined above. The patient will be advanced safely and appropriately in order for the patient to progress towards his/her prior level of function. Additional exercises will be introduced and as well as a comprehensive home exercise program upon discharge, if needed, ?to ensure carryover of functional gains achieved in the clinic. This treatment plan has been reviewed and agreement upon by the patient.
--- NOTE | 2023-08-20 10:50 | OPREHPOC ---
Outpatient Therapy Plan of Care This is a Multidisciplinary Plan of Care that may contain components documented by all disciplines (PT, OT, and ST.) PT Problem 1 PT Problem #1 Knowledge Deficit PT Goal 1 Goal Independent with core stabilization and hip mobility program Target Visit 4 Progress Met PT Problem 2 PT Problem #2 Pain PT Goal 1 Goal Reports no pain with ambulation of 1 mile to return to functional walking program Target Visit 8 Progress Partially Met Comment Currently unable to complete desired distance. PT Problem 3 PT Problem #3 Impaired Range of Motion PT Goal 1 Goal Improve maddison HS 90/90 ROM to -20 degrees to reduce posterior pelvic pull during squatting actvity Target Visit 8 Progress Partially Met Comment Some regression noted on R hip with pain integrated. PT Goal 2 Goal Patient will demonstrate pain free mild restriction of L piriformis to reduce sciatic pressure and improve hip internal rotation to improve functional walking and squatting activity Target Visit 8 Progress Partially Met Comment Soem regression on right with pain implicated. PT Problem 4 PT Problem #4 Impaired Gait PT Goal 1 Goal Patient will ambulate with even stride length bilaterally for 600' with no noted external rotation of left foot Target Visit 8 Progress Partially Met Comment Improved stride but still lacking full terminal stance
== END 2023-09-10 11:30 | disposition still patient (30) ==
LOC: ANHGOSHPT 10:15
PROVIDERS: PCP Family Medicine; Visit Provider Family Medicine
DX: M54.50 Low back pain, unspecified (principal); M25.551 Pain in right hip
CPT/HCPCS: 97110; 97140; 97161; 97530

== ENCOUNTER 2023-09-17 12:23 | Outpatient (RCR) | payer MEDICARE, OTHER, SELFPAY ==
--- NOTE | 2023-09-17 12:36 | PTOPDC ---
Assessment and note entered by Sabas Madrid, PT Evaluation Information Assessment Status Discharge Diagnosis Low back Pain, Right Hip pain Subjective Information Reports that overall she is still struggling with pain and mobility. She met with neurology yesterday and will be having surgery upcoming in next few weeks if everything goes according to plan. Feels therapy has helped but overall still struggles with pain. Would like to be discharged at this time to [facility] in anticipation of surgery. Reported Pain Level Pain Score 4: Self Report Assessment PT Clinical Summary Patient has made functional improvement in strength and ROM at this time. She is on trajectory to pursue surgery for stabilization decompression and I feel this is most as appropriate for the condition of her spine and the lack of full progress she has made in therapy. Discharging to [facility] at this time.
--- NOTE | 2023-09-17 12:40 | PCPTNOTE ---
Patient chart carrying over from #[id number]
== END 2023-09-17 13:57 | disposition home or self-care (01) ==
LOC: ANHGOSHPT 12:23
PROVIDERS: PCP Family Medicine; Visit Provider Family Medicine
DX: M54.50 Low back pain, unspecified (principal); M25.551 Pain in right hip
CPT/HCPCS: 97110; 97140

== ENCOUNTER 2023-09-24 08:11 | Outpatient (CLI) | payer MEDICARE, OTHER, SELFPAY ==
--- NOTE | ~2023-09-24 | DEXA_ITS ---
Bone Density Report Name: BARON MAJOR Age: 68 Sex: Female Ethnicity: White Date of : 1955 Indication: postmenopausal; screening for osteoporosis; cancer; hysterectomy; Referring Provider: YOANA PHILLIPS Study: Bone densitometry was performed. Exam Date: September 24, 2023 Accession number: [id number] Bone Density: Region BMD T-score Z-score Classification AP Spine(L1-L4) 1.043 0.0 2.1 Normal Femoral Neck (Left) 0.781 -0.6 1.2 Normal Total Hip (Left) 0.856 -0.7 0.8 Normal Femoral Neck (Right) 0.812 -0.3 1.5 Normal Total Hip (Right) 0.823 -1.0 0.5 Normal Total Hip Mean 0.839 -0.9 0.7 Normal World Health Organization criteria for BMD impression classify patients as: Normal (T-score at or above -1.0), Osteopenia (T-score between -1.0 and -2.5), or Osteoporosis (T-score at or below -2.5). 10-year Fracture Risk: FRAX not reported because: All T-scores for Spine Total, Hip Total, Femoral Neck at or above -1.0 Clinical Information Provided by Patient: Has used the following medications: Vitamin D Has the following medical conditions: Cancer, Hysterectomy Patient maximum height was 62.0 Menopause Age: 38 No regular weight bearing exercise Does not regularly consume dairy products Drinks caffeinated beverages Onset of menses at age 12 Number of children 2 Impression: The patient has normal bone mass. Discussion: BONE DENSITY IS ABOVE THE MINIMUM DESIRABLE LEVEL AT ALL SKELETAL SITES TESTED. This patient?s bone mineral density is above the minimum desirable level (T-score -1.0 or better) at all sites measured. The patient should follow a healthful lifestyle (good nutrition with adequate calcium and vitamin D, and appropriate weight-bearing exercise). Follow-Up: Consider repeating this study in 5 years or sooner if there is some new clinical indication. Reported by: MALLORY on 09/24/2023 8:35:00 AM. Reviewed, dictated and finalized at location AShavonne MARTÍNEZ
== END 2023-09-24 08:12 | disposition home or self-care (01) ==
PROVIDERS: PCP Family Medicine; Referring Provider Neurological Surgery; Visit Provider Internal Medicine
DX: Z78.0 Asymptomatic menopausal state (principal)
CPT/HCPCS: 77080

== ENCOUNTER 2023-10-22 09:57 | Outpatient (CLI) | payer MEDICARE, OTHER, SELFPAY ==
--- NOTE | ~2023-10-22 | XR_ITS ---
Clinical Indication: Preprocedural clearance PA and lateral views of the chest: Comparison: 05/06/2020 Findings: The lungs are clear, without evidence of focal consolidation or pleural effusion. Cardiome diastinal silhouette is within normal limits. Bones and soft tissues are unremarkable. Impression: Normal chest. Reviewed, dictated and finalized at [facility]. R STANDARDS DIRECTOR Impression: Normal chest.
--- NOTE | 2023-10-22 10:19 | ECG_ITS ---
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
== END 2023-10-22 09:58 | disposition home or self-care (01) ==
PROVIDERS: PCP Family Medicine; Visit Provider Neurological Surgery
DX: Z01.818 Encounter for other preprocedural examination (principal); R94.31 Abnormal electrocardiogram [ECG] [EKG]
CPT/HCPCS: 71046; 93005

== ENCOUNTER 2023-10-25 09:42 | Outpatient (CLI) | payer MEDICARE, OTHER, SELFPAY ==
[2023-10-25 10:42] LABS: Hematocrit 34.9 % (37.0-47.0); Hemoglobin 10.9 g/dL (12.0-15.0); Mean Corpuscular HGB Conc 31.2 g/dl (32-36); Mean Corpuscular Hemoglobin 29.8 pg (26-34); Mean Corpuscular Volume 95.4 fl (80-100); Mean Platelet Volume 9.4 fl (7.4-10.4); Platelet Count Result 310 k/mm3 (150-375); Red Blood Count 3.66 M/mm3 (4.2-5.4); Red Cell Distribution Width 13.2 % (11.5-14.5); White Blood Count 7.7 K/mm3 (4.5-10.0)
[2023-10-25 10:54] LABS: Anion Gap 9 mmol/L (8-16); Blood Urea Nitrogen 15 mg/dL (7-17); Calcium 9.3 mg/dL (8.4-10.2); Carbon Dioxide 23 mmol/L (22-30); Chloride 103 mmol/L (98-107); Estimated Glomerular Filt Rate > 60; Glucose 111 mg/dL (65-110); Potassium 4.1 mmol/L (3.4-5.0); Sodium 135 mmol/L (137-145)
[2023-10-25 10:55] LABS: INR 0.9; Prothrombin Time 12.5 Seconds (11.1-14.7)
[2023-10-25 10:56] LABS: Partial Thromboplastin Time 23.3 SECONDS (22.3-36.8)
[2023-10-25 19:05] LABS: Appearance Urine Cloudy (Clear); Bacteria Urine 1+ /hpf; Bilirubin Urine Negative (Negative); Blood Urine Negative (Negative); Color Urine Yellow (Yellow); Glucose Urine UA Negative (Negative); Ketones Urine Trace mg/dL (Negative); Leukocyte Esterase Ur 2+ LEU/UL (Negative); Nitrate Urine Negative (Negative); Non Pathogenic Casts 0-2; Protein Urine Trace mg/dL (Negative); RBC Urine 0-2 /hpf (0-2); Specific Grav Ur 1.015 (1.001-1.035); Squamous Epithelial Cell Urine Moderate /hpf (Few); Urobilinogen Urine 0.2 mg/dL (<2.0); WBC Urine >100 /hpf; pH Urine 6.5 (5.0-9.0)
[2023-10-25 19:07] LABS: Add Urine Microscopic? YES
== END 2023-10-25 09:43 | disposition home or self-care (01) ==
PROVIDERS: PCP Family Medicine; Visit Provider Neurological Surgery
DX: D68.9 Coagulation defect, unspecified (principal); Z01.818 Encounter for other preprocedural examination
CPT/HCPCS: 36415; 80048; 81001; 85027; 85610; 85730; 87077; 87086; 87088

== ENCOUNTER 2023-12-27 09:19 | Outpatient (CLI) | payer MEDICARE, OTHER, SELFPAY ==
--- NOTE | ~2023-12-27 | CT_ITS ---
EXAMINATION: CT sinus wo con DATE: 12/27/2023 09:39 INDICATION: Chronic sinusitis. TECHNIQUE: Computed tomography (CT) of the paranasal sinuses was performed without intravenous contra st. Iterative reconstruction technique was employed. The dose-length product was 389.16 mGy-cm. COMPARISON: Head CT 05/06/2020 FINDINGS: There is moderate mucosal thickening in left frontal sinus and the left anterior ethmoid si nuses. There is near complete opacification of left maxillary sinus. There is thickening and sclerosi s of the gold of left maxillary sinus and left frontal sinus, consistent with chronic sinusitis. The re is mild mucosal thickening in right sphenoid sinus and right maxillary sinus. There is extensive d ental disease. There is a broken left maxillary molar with periapical lucencies and dehiscence of dalia or of left maxillary sinus. The nasal septum is at the midline. The left ostiomeatal unit is occluded at the hiatus semilunaris and infundibulum. IMPRESSION: 1. Occluded left ostiomeatal unit with chronic left-sided sinusitis. Reviewed, dictated and finalized at location A.
== END 2023-12-27 09:20 ==
LOC: GOSHIMG 09:20
PROVIDERS: PCP Nurse Practitioner Family; Visit Provider Otolaryngology
DX: J32.9 Chronic sinusitis, unspecified (principal)
CPT/HCPCS: 70486

== ENCOUNTER 2024-02-15 00:56 | Day surgery (SDC) | payer MEDICARE, OTHER, SELFPAY ==
[2024-02-03 13:31] VITALS: BMI 22.7
--- NOTE | 2024-02-03 13:39 | PC.NURSE ---
Report to the Outpatient Waiting Room, entrance under the green pavilion located off [facility], at time ___0945____ on date _02/15/24 . Planned Procedure Time: ___1145 . Time changes happen often and if your time is changed the preop area will call you the afternoon before. - You and your visitor will be asked to self-screen and do not enter if you have any COVID symptoms. - A mask is optional within the hospital at this time. Patients may have clear liquids (water, carbonated beverages, clear teas, apple juice) until 3 hours prior to surgery (0845 AM) with a maximum of 20 ounces. - No food from midnight until time of surgery - Infants may have breast milk until 4 hours before surgery, formula 6 hours prior to surgery. - Children will be allowed to drink immediately following surgery. If applicable, please bring a bottle or sippy cup to assist with drinking. Juice, water, soda, and popsicles are readily available. For infants on formula, please bring formula the day of surgery. Pacifiers are allowed. Take the following medications with a SIP of water the morning of surgery: __TYLENOL, ATENOLOL DO NOT STOP ANY OF YOUR OTHER PRESCRIPTION MEDICATIONS PRIOR TO SURGERY ?EXCEPT THE FOLLOWING Medications to discontinue per ANESTHESIA - _VITAMINS/SUPPLEMENTS 3 DAYS PRIOR TO SURGERY, Date to take last dose 02/11/24 Please no make-up, nail burundian, hairspray, perfume, deodorant, or body powder the day of surgery. No jewelry (including any body piercings) or valuables the day of surgery, leave them at home. Please take a shower or bath the night before, or the morning of, surgery with an antibacterial soap. Wear comfortable, loose fitting clothing. Children are encouraged to wear pajamas. - Jewelry must be removed prior to entering the operating room. Rings and piercings that are not removed may be cut off. - The hospital will not accept responsibility for valuables. - Please leave all valuables, including medications, at home the day of surgery. If you are going home after surgery, a licensed courtesy car driver must drive you home. - NO public transportation without another adult if you receive anesthesia. - We recommend that an adult stay with you for 24 hours following discharge. - We also recommend that you do not drive, make important decision, drink alcoholic beverages, or take any drugs that were not prescribed by your health care provider for at least 24 hours after your discharge time. For Pediatric surgeries, we recommend two adults accompany the child home. Follow any additional instructions given to you from your surgeon. If you or anyone in your household have experienced Covid symptoms in the past week, please notify your surgeon or the nurse liaison at the phone number below for possible testing. Telephone instructions given to PT and asked if any additional questions and then verbalized understanding. Patient advised to call surgeon office or pre surgery nurse liaison [phone] if any additional questions.
--- NOTE | 2024-02-14 17:02 | PM.IMHP ---
H&P: HPI History of Present Illness Date/Time: 02/14/24 17:02 Chief Complaint: Ear lesion midline neck cyst septal deviation odontogenic sinusitis chronic sinusitis Narrative: planned procedure Review of Systems Review of Systems: All systems reviewed & are unremarkable except as noted in HPI and below PMFSH Past Medical History Medical History Bowel obstruction (~2015) Breast cancer (~2014) Rt breast lumpectomy, chemo, radiation - [facility] Hypertension Osteoporosis screening Surgical History Surgical History H/O: hysterectomy History of hernia surgery (~2015) History of intestinal surgery (~2015) bowel obstruction History of lumpectomy of right breast (~2014) Family History Family History Mother Family history of glaucoma Family history of malignant neoplasm of breast in first degree relative Grandparent Family history of malignant neoplasm of breast in first degree relative Sibling Family history of malignant neoplasm of breast in first degree relative Other Family history of chronic obstructive pulmonary disease Family history of malignant neoplasm of breast Family history of thyroid disease Social History Social History (Updated 02/08/24 @ 08:28 by Madalyn Zhao MA) Social History: she has 2 children a son and a daughter. She lives with her daniel. 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 [employer] Smoking packs per day: 0.5 Smoking cigarettes per day: 10.0 Years smoked: 40 Smoking pack-years: 20.00 Smoking status: Former smoker Tobacco type: cigarettes Second hand tobacco smoke exposure: No Smoking end date: 08/16/22 Alcohol intake: former Substance use: never Substance use type: does not use Do You Feel Safe in your Home?: Yes Lack of Transportation: No Lack of Food: Never True Current Housing: I Have Housing Concerned About Future Housing: No Difficulty Paying Gas/Electric Bills: No Difficulty Paying for Meds: No Currently Unemployed: No Education: Trade/Vocational Certificate Difficulty w/ Childcare or Family Care: No Living arrangements: with family Additional living arrangements comments: Occupation/Education: unemployed 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 Gender identity (if verbalized by the patient): Female Sexual Orientation (if Verbalized by the Patient): Straight or Heterosexual Spiritual care concerns: No Agree to blood products: Yes Meds Home Medications and Allergies Home Medications Medication Instructions Recorded Confirmed Type ascorbate calcium (vitamin C) 500 500 mg PO DAILY 04/28/23 02/08/24 History mg tablet cholecalciferol (vitamin D3) 50 50 mcg PO DAILY 04/28/23 02/08/24 History mcg (2,000 unit) capsule vitamin B complex (B 1 tablet PO DAILY 04/28/23 02/08/24 History Complex-Vitamin B12 tablet) atenolol 25 mg tablet 25 mg PO BID 12/22/23 02/08/24 History fluticasone propionate 50 1 - 2 spray intranasal BID #48 mL 12/22/23 02/08/24 Rx mcg/actuation nasal spray,suspension (Flonase Allergy Relief) lisinopril 10 mg tablet 10 mg PO DAILY #30 tabs 02/01/24 02/08/24 Rx acetaminophen 500 mg tablet 1,000 mg PO BID 02/03/24 02/08/24 History cinnamon bark 500 mg capsule 1,000 mg PO DAILY 02/03/24 02/08/24 History (Cinnamon) evening primrose oil-linoleic 1 cap PO DAILY 02/03/24 02/08/24 History acid-gamolenic acid 1,000 mg capsule ([place] Oil) melatonin 10 mg capsule 10 mg PO HS 02/03/24 02/08/24 History multivitamin 1 tablet DAILY 02/03/24 02/08/24 History vitamin E 670 mg (1,000 unit) 670 mg PO DAILY 02/03/24 02/08/24 History capsule zinc 50 mg tablet 50 mg PO DAILY 02/03/24 02/08/24 History clindamycin HCl 300 mg capsule
[2024-02-15] VITALS (9 sets, daily range): BP systolic 111–141; BP diastolic 64–79; PULSE 62–94; RESP 14–20; TEMP 36.2; O2SAT 94–100
--- NOTE | 2024-02-15 07:22 | WPDHPUPDATE1 ---
History and Physical Update Update Date/Time: 02/15/24 07:22 History and Physical has been reviewed, including an updated exam of the patient. There are NO changes in the patient's condition. Risks, benefits, and alternatives have been discussed and questions answered. Patient agrees to proceed with procedure.
--- NOTE | 2024-02-15 10:05 | WPDANESEPPF ---
Anes - Initial Pre Proc Eval Procedure: Operation Date: 02/15/24 11:45 Proposed Procedures p Image Guided Endoscopic Left Maxillary Antrostomy, Left Anterior Ethmoidectomy - Honorio Murray MD s Left Outer Ear Excisional Biopsy, Excision of Midline Neck Cysts - Honorio Murray MD Date/Time: 02/15/24 10:05 Surgeon: Honorio Murray MD Pre Op Diagnosis: Chr Sinusitis, Midline Neck Cysts, Lt Ear Lesion Patient Data Age: 68 Gender: F Height: 1.57 m Weight: 56.36 kg Allergies Allergy/AdvReac Type Severity Reaction Status Date / Time No Known Allergies Allergy Verified 02/08/24 08:48 Home Medications Medication Instructions Recorded Confirmed Type ascorbate calcium (vitamin C) 500 500 mg PO DAILY 04/28/23 02/08/24 History mg tablet cholecalciferol (vitamin D3) 50 50 mcg PO DAILY 04/28/23 02/08/24 History mcg (2,000 unit) capsule vitamin B complex (B 1 tablet PO DAILY 04/28/23 02/08/24 History Complex-Vitamin B12 tablet) atenolol 25 mg tablet 25 mg PO BID 12/22/23 02/08/24 History fluticasone propionate 50 1 - 2 spray intranasal BID #48 mL 12/22/23 02/08/24 Rx mcg/actuation nasal spray,suspension (Flonase Allergy Relief) lisinopril 10 mg tablet 10 mg PO DAILY #30 tabs 02/01/24 02/08/24 Rx acetaminophen 500 mg tablet 1,000 mg PO BID 02/03/24 02/08/24 History cinnamon bark 500 mg capsule 1,000 mg PO DAILY 02/03/24 02/08/24 History (Cinnamon) evening primrose oil-linoleic 1 cap PO DAILY 02/03/24 02/08/24 History acid-gamolenic acid 1,000 mg capsule ([place] Oil) melatonin 10 mg capsule 10 mg PO HS 02/03/24 02/08/24 History multivitamin 1 tablet DAILY 02/03/24 02/08/24 History vitamin E 670 mg (1,000 unit) 670 mg PO DAILY 02/03/24 02/08/24 History capsule zinc 50 mg tablet 50 mg PO DAILY 02/03/24 02/08/24 History clindamycin HCl 300 mg capsule 300 mg PO Q8H #21 caps 02/04/24 02/08/24 Rx rhubarb root extract 4 mg tablet mg PO 02/08/24 02/08/24 History (Estroven Complete Menopause Relief) vit A 7,160 unit-vit C 113 mg-vit tablet PO 02/08/24 02/08/24 History E 100 [id number] tablet Patient hx anesthesia problems: none Family hx anesthesia problems: none Results Review: All pre-operative results and documents have been reviewed as part of the pre-operative evaluation. [facility] Past Medical History Medical History Bowel obstruction (~2015) Breast cancer (~2014) Rt breast lumpectomy, chemo, radiation - [facility] Hypertension Osteoporosis screening Surgical History Surgical History H/O: hysterectomy History of hernia surgery (~2015) History of intestinal surgery (~2015) bowel obstruction History of lumpectomy of right breast (~2014) Family History Family History Mother Family history of glaucoma Family history of malignant neoplasm of breast in first degree relative Grandparent Family history of malignant neoplasm of breast in first degree relative Sibling Family history of malignant neoplasm of breast in first degree relative Other Family history of chronic obstructive pulmonary disease Family history of malignant neoplasm of breast Family history of thyroid disease Social History Social History Social History: she has 2 children a son and a daughter. She lives with her daniel. 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
[2024-02-15] MEDS: LACTATED RINGERS 1,000 ML 30 ML IV CONT ×2 (10:15→14:21)
[2024-02-15] MEDS: ceFAZolin 2 GM/D5W 50 ML 2 GM/50 ML BAG IVPB (12:44)
[2024-02-15] MEDS: LIDO 1%/EPINEPHRINE 1:100,000 20 ML VIAL INFILTRATE (13:14)
[2024-02-15] MEDS: OXYMETAZOLINE HCL 0.05% NAS 15 ML BTL (*BKC) 1 SPRAY NASAL (13:15)
[2024-02-15] MEDS: MUPIROCIN 2% OINT 22 GM TUBE 1 APPLIC TOPICAL (13:36)
[2024-02-15] MEDS: TOBRAMYCIN SULFATE 80 MG/2 ML VIAL 320 MG IRRIGATION (14:07)
--- NOTE | 2024-02-15 14:11 | SUR.OPER ---
specimens given to gregory Mancuso received in lab by Mary
--- NOTE | 2024-02-15 14:41 | SUR.PHASEI ---
1438 - dr. hammer at bedside talking with pt
[2024-02-15] MEDS: oxyCODONE HCL (*CRX) 5 MG TAB IR PO (15:21)
--- NOTE | 2024-02-15 16:12 | W.PM.PROC2 ---
Procedure Note - Detailed Date of Procedure 02/15/24 Pre-op Diagnosis Chr Sinusitis, Midline Neck Cysts, Lt Ear Lesion Post-op Diagnosis Same Procedure Performed excision of midline neck cyst, excisional biopsy left auricular ear lesion, left-sided image guided endoscopic maxillary antrostomy anterior ethmoid Ectomy Surgeon Honorio Murray MD Anesthesia General Indications see above Findings 3 cm midline neck cyst consistent with sebaceous cyst, no complications, left ear lesion slightly scaly removed 1 stitch placed. Shave /excisional biopsy performed. The left maxillary sinus and ethmoid severely diseased full of purulence this was cultured x2. Washed out with tobramycin infused irrigation. Minimal bleeding. Description of Procedure Patient identified consent verified preop. Patient brought to the operating. Time-out performed. General anesthesia induced endotracheal tube secured. Patient prepped draped position procedure confirmed 2nd time-out performed. Patient prepped in a sterile fashion midline nexus 0.5 cc 1% lidocaine 1 100 parts epinephrine injected over the cyst 3 cm incision made in relaxed skin tension line. Fifteen blade utilized to cut through the dermis blunt dissection with tenotomy scissors utilized to remove the cyst there was rupture however the entire cyst capsule was removed. The pinpoint connection with the skin was also removed. Wound copiously irrigated with sterile normal sterile normal saline no bleeding 3 deep 4-0 Vicryl sutures placed skin approximated very well skin glue placed. Left ear excision excised in a shave biopsy fashion with 15 blade. Bleeding controlled with pressure. 150 interrupted sutures placed to close the epidermis the epidermal defect. Image guidance initiated confirmed. Left maxillary antrostomy performed with double ball tip probe backbiter straight through cut microdebrider. Great care was taken to ensure the surgical os connected natural os. Copious amounts of purulence. This was irrigated with sterile normal saline infused with tobramycin 400 cc/liter of sterile normal saline. Anterior ethmoids opened with Kerrison and microdebrider image guidance severely diffuse tissue. All cellulitic. The wound was then copiously irrigated Nova pack placed. Bleeding about 20 cc. Care the patient given back to Anesthesiology I performed all dictated portions of procedure no complications. Estimated Blood Loss 20 Drains No Packing Yes ( Nova pack) Pathology Yes ( midline neck and left ear) Complications No immediate complications Condition Stable Disposition PACU [facility] Billing Surgery - Charge Forward: Surgery Billing
== END 2024-02-15 16:18 | disposition home or self-care (01) ==
PROVIDERS: PCP Family Medicine; Visit Provider Otolaryngology
PROC: (CPT 11423; principal; 2024-02-15 11:45)
PROC: (CPT 11423; 2024-02-15 11:45)
DX: L72.0 Epidermal cyst (principal); D18.01 Hemangioma of skin and subcutaneous tissue; J32.0 Chronic maxillary sinusitis; J32.2 Chronic ethmoidal sinusitis; I10 Essential (primary) hypertension; Z98.890 Other specified postprocedural states; Z90.11 Acquired absence of right breast and nipple; Z92.3 Personal history of irradiation; Z92.21 Personal history of antineoplastic chemotherapy; Z85.3 Personal history of malignant neoplasm of breast; Z87.891 Personal history of nicotine dependence; Z80.3 Family history of malignant neoplasm of breast
CPT/HCPCS: 11423; 11441; 61782; 31256; 31254; 87070; 87075; 87076; 87185; 87205; 88305; A9270; J0690; J1100; J2405; J2704; J3010; J3260; J7120

== ENCOUNTER 2024-02-21 13:06 | Outpatient (CLI) | payer MEDICARE, OTHER, SELFPAY ==
--- NOTE | ~2024-02-21 | XR_ITS ---
3 VIEWS LUMBAR SPINE Ordering provider: Keila Brown MD History: . Z98.1 - Arthrodesis status . Comparison: None. FINDINGS: VERTEBRAL BODIES: No visible fracture or subluxation. Postoperative changes in the lower lumbar area at the level of L4-L5. Mild dextroscoliosis. DISK SPACES: Disc spacers seen at the level of L4-L5. Narrowing of the disc L2-L3 and L3-L4. SOFT TISSUES: Normal. Bilateral hip osteoarthritic changes. IMPRESSION: No acute osseous abnormality lumbar spine. Postoperative changes. Multilevel degenerative disc disease. Reviewed, dictated and finalized at location A.
== END 2024-02-21 13:07 ==
PROVIDERS: PCP Family Medicine; Visit Provider Neurological Surgery
DX: M51.36 Other intervertebral disc degeneration, lumbar region (principal); Z98.1 Arthrodesis status
CPT/HCPCS: 72100

== ENCOUNTER 2024-03-08 09:13 | Outpatient (CLI) | payer MEDICARE, OTHER, SELFPAY ==
[2024-03-08 19:52] LABS: Free T4 Free Thyroxine 1.22 ng/mL (0.78-2.19); Vitamin D 25 Hydroxy 44.8 ng/mL
[2024-03-08 20:07] LABS: Alanine Aminotransferase 32 U/L (6-35); Albumin Level 4.2 g/dL (3.5-5.1); Alkaline Phosphatase 121 U/L (38-126); Anion Gap 11 mmol/L (4-12); Aspartate Amino Transferase 43 U/L (14-36); Bilirubin,Total 0.5 mg/dL (0.2-1.3); Blood Urea Nitrogen 21 mg/dL (7-17); Calcium 9.3 mg/dL (8.4-10.2); Carbon Dioxide 25 mmol/L (22-30); Chloride 101 mmol/L (98-107); Cholesterol 194 mg/dL (0-200); Estimated Glomerular Filt Rate > 60; Glucose 91 mg/dL (65-110); HDL Direct 73 mg/dL; Potassium 4.2 mmol/L (3.4-5.0); Sodium 137 mmol/L (137-145); Triglycerides 121 mg/dL (<150)
[2024-03-08 20:18] LABS: LDL Cholesterol Direct 91 mg/dL
[2024-03-08 20:37] LABS: Thyroid Stimulating Hormone 0.615 uIU/mL (0.465-4.680)
== END 2024-03-08 09:14 | disposition home or self-care (01) ==
LOC: ANHGOSHLAB 09:15
PROVIDERS: PCP Family Medicine; Visit Provider Internal Medicine
DX: R94.6 Abnormal results of thyroid function studies (principal); I10 Essential (primary) hypertension
CPT/HCPCS: 36415; 80053; 80061; 82306; 84439; 84443; 87070; 87075; 87077; 87147; 87181; 87186; 87205

== ENCOUNTER 2024-03-08 19:55 | Outpatient (NON) | payer MEDICARE, OTHER, SELFPAY | END 2024-03-08 19:56 | disposition home or self-care (01) | PROVIDERS: PCP Family Medicine; Visit Provider Otolaryngology | DX: J32.9 Chronic sinusitis, unspecified (principal) | CPT/HCPCS: 87070; 87075; 87077; 87147; 87181; 87186; 87205 ==

== ENCOUNTER 2024-08-29 10:03 | Outpatient (CLI) | payer MEDICARE, SELFPAY ==
--- NOTE | ~2024-08-29 | XR_ITS ---
3 VIEWS LUMBAR SPINE Ordering provider: Keila Brown MD History: . Low back pain . Comparison: None. FINDINGS: VERTEBRAL BODIES: No visible fracture or subluxation. Postoperative changes at the level of L4-5. DISK SPACES: Disc spacer at the level of L4-L5. Narrowing of the disc L3-4. SOFT TISSUES: Atherosclerotic changes of aorta. IMPRESSION: No acute osseous abnormality lumbar spine. Postoperative changes. Reviewed, dictated and finalized at location A. WINDER STRAP
== END 2024-08-29 10:04 | disposition home or self-care (01) ==
PROVIDERS: PCP Neurological Surgery; Visit Provider Neurological Surgery
DX: M54.50 Low back pain, unspecified (principal)
CPT/HCPCS: 72100

== ENCOUNTER 2024-08-29 10:09 | Outpatient (CLI) | payer MEDICARE, SELFPAY ==
--- NOTE | ~2024-08-29 | US_ITS ---
EXAMINATION: US thyroid DATE: 08/29/2024 10:27 INDICATION: Abnormal labs. Nontoxic goiter. TECHNIQUE: Multiple ultrasound images of the thyroid were obtained. COMPARISON: 06/09/2023 FINDINGS: The right thyroid lobe measures 4.7 x 2.0 x 1.8 cm. The left thyroid lobe measures 4.9 x 1.7 x 1.8 c m. Thyroid isthmus measures 5 mm in thickness. No significant interval change in a 4 mm wider than ta ll nodule in the inferior right thyroid lobe peripheral smooth margins and which in the current study appears mixed solid and cystic (TI-RADS 3, mildly suspicious , FNA if >=2.5 cm, annual followup is > =1.5 cm). Also without significant interval change is a 2-3 mm anechoic cystic TI RADS 1 nodule in th e right thyroid lobe. There is normal echotexture, echogenicity and vascular flow throughout the thyr oid gland. IMPRESSION: 1. No significant change in small thyroid nodules which are likely not clinically significant and whi ch remain well below size criteria for either biopsy or follow-up. Reviewed, dictated and finalized at location B. ER TAPER IMPRESSION: 1. No significant change in small thyroid nodules which are likely not clinical ly significant and which remain well below size criteria for either biopsy or f ollow-up.
== END 2024-08-29 10:10 | disposition home or self-care (01) ==
LOC: GOSHIMG 10:09
PROVIDERS: PCP Family Medicine; Visit Provider Internal Medicine
DX: R89.9 Unspecified abnormal finding in specimens from other organs, systems and tissues (principal); E04.9 Nontoxic goiter, unspecified
CPT/HCPCS: 76536

== ENCOUNTER 2025-01-05 01:17 | Day surgery (SDC) | payer MEDICARE, SELFPAY ==
[2024-12-29 13:46] VITALS: BMI 22.3
--- OUTSIDE RECORDS SUMMARY | 2025-01-05 01:19 | XMS_ITS | Clinical Summary ---
Author Organization [facility] Address [address] [place] [address] Care Team Providers Care Salvage Repairer Name Role Phone Juan Donaldson MD Primary Care Provider Allergies No known active allergies Medications atenolol (TENORMIN) 25 mg tablet every 12 hours Activ e soy isofla-blk cohosh-mag bark 155 mg capsule Estroven Activ e lisinopril (PRINIVIL,ZESTR IL) 10 mg tablet TK 1 T PO QD 9 Active soy isofla/blk cohosh/mag bark (ESTROVEN ORAL) Estroven 9 Active meloxicam (MOBIC) 7.5 mg tablet TAKE 1 TABLET BY MOUTH TWICE DAILY FOR BACK PAIN 4 Active fluticasone propionate (FLONASE) 50 mcg/actuation nasal spray INHALE 1 TO 2 SPRAYS IN EACH NOSTRIL TWICE DAILY. AIM BACK/UP/OUT 4 Active doxycycline hyclate 100 mg capsule TAKE 1 CAPSULE BY MOUTH TWICE DAILY. HOLD ZINC WHILE TAKING 4 Active acetaminophen (TYLENOL) 500 mg tablet Take 1 tablet (500 mg total) by mouth every 6 (six) hours as needed Active cyanocobalamin (Vitamin B-12) 50 mcg tablet Take by mouth Ac tive cholecalciferol (VITAMIN D-3) 5,000 unit capsule Take 125 mcg by mouth daily Active ascorbic acid (VITAMIN C) 250 mg tablet Take 1 tablet (250 mg total) by mouth daily Active melatonin tablet Take 1 tablet (1 mg total) by mouth nightly as needed Active black cohosh root extract (REMIFEMIN MENOPAUSE ORAL) Take by mouth Active cinnamon bark (CINNAMON ORAL) Take by mouth Active TURMERIC ORAL Take by mouth Ac tive oxyCODONE (ROXICODONE) 5 mg immediate release tablet Take 1 tablet (5 mg total) by mouth every 6 (six) hours as needed 4 Active polyethylene glycol (MIRALAX) 17 gram packet Take 1 packet (17 g total) by mouth daily Active pseudoephedrine ER (SUDAFED) 120 mg 12 hr tablet Take 1 tablet (120 mg total) by mouth every 12 (twelve) hours Active amoxicillin 500 mg tablet/capsule take 1 capsule by mouth every 8 hours 4 Active vitamin E 1,000 unit capsule Take by mouth daily Active vit C,N-Nf-wmtow-azucena tein-zeaxan (Ocuvite Lutein and Zeaxanthin) 60 mg-13.5 mg- 15 mg-2 mg-6 mg capsule Take 1 capsule by mouth daily Active UNABLE TO FIND Take 1 each by mouth as needed Homeopathic leg cramps Active zinc sulfate (ZINCATE) 50 mg zinc (220 mg) capsule Take by mouth daily Active EVENING PRIMROSE OIL ORAL Take 1 tablet by mouth nightly Active cranberry fruit 450 mg tablet Take 450 mg by mouth nightly Active erythromycin (ILOTYCIN) ophthalmic ointment APPLY A SMALL AMOUNT TO SURGICAL EYELIDS TWICE DAILY 5 Active Active Problems Problem Noted Date Diagnosed Date Spondylolisthesis, lumbar region 11/03/2023 Personal history of breast cancer 02/22/2018 Resolved Problems Problem Noted Date Diagnosed Date Resolved Date Malignant neoplasm of centra l portion of female breast 06/10/2015 02/22/2018 Encounters Date Type Department Care Team Description 12/22/2024 10:00 AM CDT Office Visit [facility] Oncology [address] [place] [address] Rosalia Santillan NP Encounter for screening mammogram for breast cancer (Primary Dx); Personal history of breast cancer 12/22/2024 Results Follow-Up [facility] Surgery [facility] [address] [place] [phone] Zeinab Ni NP Screening Mammogram Bilateral W Michele 12/21/2024 1:45 PM CDT - 12/21/2024 11:59 PM CDT Hospital Encounter [facility] - Breast Imaging [address] [facility] [address] [place] [address] Personal history of breast cancer Discharge Disposition: Discharge to home or self care 12/21/2024 1:30 PM CDT Office Visit [facility] Surgery [address] [facility] [address] [place] [phone] Zeinab Ni NP History of right breast cancer (Primary Dx); History of partial mastectomy, right; Personal history of breast cancer; Encounter for screening mammogram for malignant neoplasm of breast from Last 3 Months Immunizations Immunization Administration Dates Next Due Pfizer SARS-CoV-2 Monovalent Vaccination (12+ Yrs) PURPLE 10/29/2020,10/10/2020 Surgical History Surgery Date Site/Laterality Comments IR FINE NEEDLE ASPIRATION W IMAGE GUIDANCE 06/13/2015 N/A US UNLISTED PROCEDURE LYMPH SYSTEM 12/02/2015 N/A PORT PLACEMENT CHEST >5 YEARS 06/24/2015 N/A PORT REMOVAL 07/22/2016 N/A BACK SURGERY 11/03/2023 BREAST BIOPSY 06/04/2015 Right right ultrasound-guided biopsy 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 MASTECTOMY W/ NODES PARTIAL 12/02/2015 Right right partial mastectomy and sentinel lymph node biopsy (0/2) CATARACT EXTRACTION 10/14/2024 - 11/13/2024 Bilateral BLEPHAROPLASTY 11/14/2024 - 12/13/2024 Bilateral Family History Medical History Relation Name Comments Breast cancer Maternal Grandmother Relation Name Status Comments Maternal Grandmother Social History Tobacco Use Types Packs/Day Years Used Date Smoking Tobacco: Former Cigarettes Smokeless Tobacco: Never Tobacco Cessation:Counseling Given: Not Answered Comments No Sex and Gender Information Value Date Recorded Sex Assigned at Not on file 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 Gender Identity Not on file Sexual Orientation Not on file Obstetrics History Last Filed Vital Signs Vital Sign Reading Time Taken Comments Blood Pressure 158/84 12/22/2024 10:49 AM CDT Pulse 60 12/22/2024 10:49 AM CDT Temperature 36 C (96.8 F) 12/22/2024 10:49 AM CDT Respiratory Rate 18 12/22/2024 10:49 AM CDT Oxygen Saturation 98% 12/22/2024 10:49 AM CDT Inhaled Oxygen Concentration - - Weight 59.4 kg (131 lb) 12/22/2024 10:49 AM CDT Height 157.5 cm (5' 2 ) 12/22/2024 10:49 AM CDT Body Mass Index 23.96 12/22/2024 10:49 AM CDT Plan of Treatment Health Maintenance Due Date Last Done Comments Colon Cancer Screening-Colonoscopy 1955 Depression Screening 1953 Fall Risk Assessment 1953 Hepatitis C Screening 1955 Osteoporosis Screening-Bone Density Scan 1953 DTaP/Tdap/Td Vaccine (1 - Tdap) 1964 Hepatitis B Screening 1971 Pneumococcal vaccine 65+ (1 of 1 - PCV) 2003 Zoster Vaccine (1 of 2) 2003 Well Visit 65+ 2018 Covid-19 Vaccine (3 - 2023-2 5 season) 2024 10/29/2020, 10/10/2020 Influenza Vaccine (Season Ended) 2025 Breast Cancer Screening-Mammogram 12/21/2025 12/21/2024, 12/14/2023, 11/03/2022, Additional history exists Procedures Procedure Name Priority Date/Time Associated Diagnosis Comments SCREENING MAMMOGRAM BILATERAL W MICHELE Schedule Routine, Read Routine (OP Routine) 12/21/2024 2:29 PM CDT Personal history of breast cancer from Last 3 Months Results * Screening Mammogram Bilateral W Michele (12/21/2024 2:29 PM CDT) Anatomical Region Laterality Modality Breast Bilateral Mammography Narrative 12/22/2024 10:31 AM CDT Mammogram Technique: Bilateral Digital Breast Tomosynthesis, Bilateral C-view 2D Screening mammogram. Views obtained: bilateral craniocaudal and bilateral mediolateral oblique. Computer Aided Detection was performed. Mammogram Findings: The present examination has been compared to prior imaging studies performed at [facility] on 10/31/2021, 11/03/2022 and 12/14/2023. There are scattered areas of fibroglandular density. There are post breast conservation therapy changes in the right breast. There is no suspicious abnormality in either breast. Impression: There is no mammographic evidence of malignancy. Annual screening mammography is recommended. OVERALL FINAL ASSESSMENT: BI-RADS CATEGORY 2: Benign. Procedure Note Pepper Todd MD - 12/22/2024 Mammogram Technique: Bilateral Digital Breast Tomosynthesis, Bilateral C-view 2D Screening mammogram. Views obtained: bilateral craniocaudal and bilateral mediolateral oblique. Computer Aided Detection was performed. Mammogram Findings: The present examination has been compared to prior imaging studies performed at [facility] on 10/31/2021, 11/03/2022 and 12/14/2023. There are scattered areas of fibroglandular density. There are post breast conservation therapy changes in the right breast. There is no suspicious abnormality in either breast. Impression: There is no mammographic evidence of malignancy. Annual screening mammography is recommended. OVERALL FINAL ASSESSMENT: BI-RADS CATEGORY 2: Benign. Zeinab Ni NP IMG MAMMO PROCEDURES Fi nal Result from Last 3 Months Insurance AETNA MEDICARE [facility] MEDICARE Address: [facility] [id number] [place] [phone] MEDICARE [facility] ANTH ACCESS TNA MEDICARE GOLD Care Teams Salvage Repairer Relationship Specialty Start Date End Date Juan Donaldson MD [address] [facility] [address] [place] [address] PCP - General Family Practice 12/01/23
--- OUTSIDE RECORDS SUMMARY | 2025-01-05 01:19 | XMS_ITS | Referral Summary ---
Author Organization [facility] Address [address] [place] [address] Care Team Providers Care Molecular Genetic Pathologist Name Role Phone Juan Donaldson MD Primary Care Provider Encounters Date Type Department Care Team Description 12/22/2024 Results Follow-Up [facility] Surgery [address] [place] [phone] Zeinab Ni NP Screening Mammogram Bilateral W Michele 12/22/2024 10:00 AM CDT Office Visit [facility] Oncology [facility] [place] [address] Rosalia Santillan NP Encounter for screening mammogram for breast cancer (Primary Dx); Personal history of breast cancer 12/21/2024 1:45 PM CDT - 12/21/2024 11:59 PM CDT Hospital Encounter [facility] - Breast Imaging [address] [place] [id number] Personal history of breast cancer Discharge Disposition: Discharge to home or self care 12/21/2024 1:30 PM CDT Office Visit [facility] Surgery [address] [place] [phone] Zeinab Ni NP History of right breast cancer (Primary Dx); History of partial mastectomy, right; Personal history of breast cancer; Encounter for screening mammogram for malignant neoplasm of breast from Last 3 Months Allergies No known active allergies Medications atenolol [...] capsule Take by mouth daily Active vit C,L-Oe-ktpve-azucena tein-zeaxan (Ocuvite Lutein and Zeaxanthin) 60 mg-13.5 [...] SMALL AMOUNT TO SURGICAL EYELIDS TWICE DAILY Active Active Problems Problem Noted Date Diagnosed Date Spondylolisthesis, lumbar region 11/03/2023 Personal history of breast cancer 02/22/2018 Resolved Problems Problem Noted Date Diagnosed Date Resolved Date Malignant neoplasm of centra l portion of female breast 06/10/2015 02/22/2018 Immunizations Immunization Administration Dates Next Due Pfizer SARS-CoV-2 Monovalent Vaccination (12+ Yrs) PURPLE 10/29/2020,10/10/2020 Social History Tobacco Use Types Packs/Day Years Used Date Smoking Tobacco: Former Cigarettes Smokeless Tobacco: Never Tobacco Cessation:Counseling Given: Not Answered Comments No Sex and Gender Information Value Date Recorded Sex Assigned at Not on file 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 There are [...] compared to prior imaging studies performed at [facility] on 10/31/2021, 11/03/2022 and 12/14/2023. There are [...] Last 3 Months Insurance AETNA MEDICARE [place] MEDICARE [facility] ANTH ACCESS Member Subscriber Plan / Payer (Ef fective 2020-Present) Name:Roz Forman Relation to Subscriber:Spouse Name:FRANCIS FORMAN Subscriber ID:Not on file Date of :1959 (Home) Address: [address] [place] [address] Payer ID:[id number] (NAIC) Type:[place] Address: [address] [place] [id number] AETNA MEDICARE GOLD Care Teams Molecular Genetic Pathologist Relationship Specialty Start Date End Date Juan Donaldson MD [address] [facility] [address] [place] [address] PCP - General Family Practice 12/01/23
--- OUTSIDE RECORDS SUMMARY | 2025-01-05 01:19 | XMS_ITS | Encounter Summary ---
Author Organization [facility] Address [address] [place] [address] Phone Care Team Providers Care Compliance Tester Name Role Phone Silvia Terry MD Primary Care Provider [phone]- [phone] Juan Donaldson MD Primary Care Provider Encounter Details Date Type Department Care Team (Latest Contact Info) Description 01/04/2023 Orders Only [facility] Scanning, Provider Social History Tobacco Use Types Packs/Day Years Used Date Smoking Tobacco: Some Days Smokeless Tobacco: Never Comments No Sex and Gender Information Value Date Recorded Sex Assigned at Not on file Legal Sex Female 6:53 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 Gender Identity Not on file Sexual Orientation Not on file documented as of this encounter Plan of Treatment Not on file documented as of this encounter Procedures Procedure Name Priority Date/Time Associated Diagnosis Comments SCAN - RADIOLOGY/IMAGING 01/04/2023 documented in this encounter Results * SCAN - RADIOLOGY/IMAGING (01/04/2023) Anatomical Region Laterality Modality Other us Provider Scanning Final Result documented in this encounter Visit Diagnoses Not on filedocumented in this encounter Care Teams Compliance Tester Relationship Specialty Start Date End Date Silvia Terry MD PCP - General 10/11/20 11/30/23 Juan Donaldson MD [address] [facility] [address] [place] [address] PCP - General Family Practice 12/01/23 documented as of this encounter
--- OUTSIDE RECORDS SUMMARY | 2025-01-05 01:19 | XMS_ITS | Encounter Summary ---
Author Organization [facility] Address [address] [place] [address] Phone Care Team Providers Care Robotype Operator Name Role Phone Juan Donaldson MD Primary Care Provider Encounter Details Date Type Department Care Team (Late st Contact Info) Description 12/22/2024 Results Follow-Up [facility] Surgery [address] [facility] [address] [place] [address] Zeinab Ni, LALY [address] [facility] [address] [place] [address] Screening Mammogram Bilateral W Baljit Social History Tobacco Use Types Packs/Day Years Used Date Smoking Tobacco: Former Cigarettes Smokeless Tobacco: Never Comments No Sex and Gender Information Value Date Recorded Sex Assigned at Not on file 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
[2025-01-05 10:24] VITALS: BP 126/70; PULSE 60; RESP 18; TEMP 36.6; O2SAT 100
[2025-01-05] MEDS: LACTATED RINGERS 1,000 ML 150 ML IV CONT (10:44)
--- NOTE | 2025-01-05 10:51 | WPDANESEPPF ---
Anes - Initial Pre Proc Eval Procedure: Operation Date: 01/05/25 11:30 Proposed Procedures p Screening Colonoscopy - Kevyn Salguero MD Date/Time: 01/05/25 10:51 Surgeon: Kevyn Salguero MD Pre Op Diagnosis: Screening Patient Data Age: 69 Gender: F Height: 1.57 m Weight: 58 kg Last Vital Signs Temp 36.6 C 01/05/25 10:24 Pulse 60 01/05/25 10:24 Resp 18 01/05/25 10:24 BP 126/70 01/05/25 10:24 Pulse Ox 100 01/05/25 10:24 O2 Del Method Room Air 01/05/25 10:24 Allergies Allergy/AdvReac Type Severity Reaction Status Date / Time No Known Allergies Allergy Verified 12/29/24 13:42 Home Medications ?Medication ?Instructions ?Recorded ?Confirmed ?Type ascorbate calcium (vitamin C) 500 500 mg PO DAILY 04/28/23 01/05/25 History mg tablet cholecalciferol (vitamin D3) 50 50 mcg PO DAILY 04/28/23 01/05/25 History mcg (2,000 unit) capsule vitamin B complex (B 1 tablet PO DAILY 04/28/23 01/05/25 History Complex-Vitamin B12 tablet) fluticasone propionate 50 1 - 2 spray intranasal BID #48 mL 12/22/23 01/05/25 Rx mcg/actuation nasal spray,suspension (Flonase Allergy Relief) acetaminophen 500 mg tablet 1,000 mg PO BID 02/03/24 12/29/24 History cinnamon bark 500 mg capsule 1,000 mg PO DAILY 02/03/24 01/05/25 History (Cinnamon) evening primrose oil-linoleic 1 cap PO DAILY 02/03/24 01/05/25 History acid-gamolenic acid 1,000 mg capsule ([employer] Oil) melatonin 10 mg capsule 10 mg PO HS 02/03/24 01/05/25 History vitamin E 670 mg (1,000 unit) 670 mg PO DAILY 02/03/24 01/05/25 History capsule zinc 50 mg tablet 50 mg PO DAILY 02/03/24 01/05/25 History rhubarb root extract 4 mg tablet 4 mg PO DAILY 02/08/24 01/05/25 History (Estroven Complete Menopause Relief) atenolol 25 mg tablet 25 mg PO BID #180 tabs 08/17/24 01/05/25 Rx lisinopril 10 mg tablet 10 mg PO DAILY #90 tabs 08/17/24 01/05/25 Rx meloxicam 7.5 mg tablet 7.5 mg PO DAILY PRN back pain 10/18/24 12/29/24 History polyethylene glycol 3350 17 gram 17 g PO DAILY constipation 10/18/24 12/29/24 History oral powder packet (Miralax) Patient hx anesthesia problems: none Family hx anesthesia problems: none Results Review: All pre-operative results and documents have been reviewed as part of the pre-operative evaluation. [facility] Past Medical History Medical History Chronic low back pain Primary hypertension Seasonal allergies Thyroid nodule Macular degeneration Spondylolisthesis, lumbar region Lumbar back pain Bowel obstruction (~2015) x2 - 2022 Breast cancer (~2014) Rt breast lumpectomy, chemo, radiation - [facility] Surgical History Surgical History Status post lumbar spinal arthrodesis (~10/2023) History of sinus surgery (~04/2024) left-sided image guided endoscopic maxillary antrostomy anterior ethmoidectomy History of incisional hernia repair (~07/2016) History of laparoscopy (~2015) for intestinal obstruction History of cataract surgery (~04/2024) BL 04/2024 H/O: hysterectomy (~1992) History of lumpectomy of right breast (~2014) Family History Family History Mother Family history of glaucoma Family history of malignant neoplasm of breast in first degree relative Grandparent Family history of malignant neoplasm of breast in first degree relative Sibling Family history of malignant neoplasm of breast in first degree relative Other Family history of chronic obstructive pulmonary disease Family history of malignant neoplasm of breast Family history of thyroid disease Social History Social History Social History: she has 2 children a son and a daughter. She lives with her daniel. 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 [employer] full code Caffeine- daily Years smoked: 40 Smoking status: Former smoker Tobacco type: cigarettes Second hand tobacco smoke exposure: No Smoking end date: 08/16/22 Alcohol intake: former Substance use: never Substance use type: does not use Do You Feel Safe in your Home?: Yes Lack of Transportation: No Lack of Food: Never True Current Housing: I Have Housing Concerned About Future Housing: No Difficulty Paying Gas/Electric Bills: No Difficulty Paying for Meds: No Currently Unemployed: No Education: Trade/Vocational Certificate Difficulty w/ Childcare or Family Care: No Living arrangements: with family Additional living arrangements comments: Occupation/Education: unemployed 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 Gender identity (if verbalized by the patient): Female Sexual Orientation (if Verbalized by the Patient): Straight or Heterosexual Spiritual care concerns: No Agree to blood products: Yes Anes - Eval Final PreProcedure Day of Procedure 01/05/25 10:51 Patient weight: normal Heart: regular rate and rhythm Lungs: clear to auscultation Airway: Mallampati scale class II Neurological: alert and oriented Last oral intake: >/= 8 hours ASA classification: III Emergent: no Anesthetic plan: proceed Anesthesia type and monitoring: general GIVS and standard monitoring Results Review: All pre-operative results and documents have been reviewed as part of the pre-operative evaluation. Informed Consent: The patient's anesthetic plan and its attendant risks and benefits were discussed with the patient/family/POA. Questions were solicited and answers provided to the satisfaction of the patient/family/POA.
--- NOTE | 2025-01-05 11:32 | P.HP_ITS ---
History of Present Illness History of Present Illness Consent: Risks, benefits, and alternatives have been discussed and questions answered. Patient agrees to proceed with procedure. Chief complaint: Screening Narrative: Roz Forman is a 69 year old female here for first screening colonoscopy Review of Systems Review of Systems: All systems reviewed & are unremarkable except as noted in HPI and below PMFSH Past Medical History Medical History Chronic low back pain Primary hypertension Seasonal allergies Thyroid nodule Macular degeneration Spondylolisthesis, lumbar region Lumbar back pain Bowel obstruction (~2015) x2 - 2022 Breast cancer (~2014) Rt breast lumpectomy, chemo, radiation - [facility] Surgical History Surgical History Status post lumbar spinal arthrodesis (~10/2023) History of sinus surgery (~04/2024) left-sided image guided endoscopic maxillary antrostomy anterior ethmoidectomy History of incisional hernia repair (~07/2016) History of laparoscopy (~2015) for intestinal obstruction History of cataract surgery (~04/2024) BL 04/2024 H/O: hysterectomy (~1992) History of lumpectomy of right breast (~2014) Family History Family History Mother Family history of glaucoma Family history of malignant neoplasm of breast in first degree relative Grandparent Family history of malignant neoplasm of breast in first degree relative Sibling Family history of malignant neoplasm of breast in first degree relative Other Family history of chronic obstructive pulmonary disease Family history of malignant neoplasm of breast Family history of thyroid disease Social History Social History Social History: she has 2 children a son and a daughter. She lives with her daniel. 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 [employer] Caffeine- daily Years smoked: 40 Smoking status: Former smoker Tobacco type: cigarettes Second hand tobacco smoke exposure: No Smoking end date: 08/16/22 Alcohol intake: former Substance use: never Substance use type: does not use Do You Feel Safe in your Home?: Yes Lack of Transportation: No Lack of Food: Never True Current Housing: I Have Housing Concerned About Future Housing: No Difficulty Paying Gas/Electric Bills: No Difficulty Paying for Meds: No Currently Unemployed: No Education: Trade/Vocational Certificate Difficulty w/ Childcare or Family Care: No Living arrangements: with family Additional living arrangements comments: Occupation/Education: unemployed 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 Gender identity (if verbalized by the patient): Female Sexual Orientation (if Verbalized by the Patient): Straight or Heterosexual Spiritual care concerns: No Agree to blood products: Yes Meds Home Medications and Allergies Home Medications ?Medication ?Instructions ?Recorded ?Confirmed ?Type ascorbate calcium (vitamin C) 500 500 mg PO DAILY 04/28/23 01/05/25 History mg tablet cholecalciferol (vitamin D3) 50 50 mcg PO DAILY 04/28/23 01/05/25 History mcg (2,000 unit) capsule vitamin B complex (B 1 tablet PO DAILY 04/28/23 01/05/25 History Complex-Vitamin B12 tablet) fluticasone propionate 50 1 - 2 spray intranasal BID #48 mL 12/22/23 01/05/25 Rx mcg/actuation nasal spray,suspension (Flonase Allergy Relief) acetaminophen 500 mg tablet 1,000 mg PO BID 02/03/24 12/29/24 History cinnamon bark 500 mg capsule 1,000 mg PO DAILY 02/03/24 01/05/25 History (Cinnamon) evening primrose oil-linoleic 1 cap PO DAILY 02/03/24 01/05/25 History acid-gamolenic acid 1,000 mg capsule ([place] Oil) melatonin 10 mg capsule 10 mg PO HS 02/03/24 01/05/25 History vitamin E 670 mg (1,000 unit) 670 mg PO DAILY 02/03/24 01/05/25 History capsule zinc 50 mg tablet 50 mg PO DAILY 02/03/24 01/05/25 History rhubarb root extract 4 mg tablet 4 mg PO DAILY 02/08/24 01/05/25 History ([place] Complete Menopause Relief) atenolol 25 mg tablet 25 mg PO BID #180 tabs 08/17/24 01/05/25 Rx lisinopril 10 mg tablet 10 mg PO DAILY #90 tabs 08/17/24 01/05/25 Rx meloxicam 7.5 mg tablet 7.5 mg PO DAILY PRN back pain 10/18/24 12/29/24 History polyethylene glycol 3350 17 gram 17 g PO DAILY constipation 10/18/24 12/29/24 History oral powder packet (Miralax) Allergies Allergy/AdvReac Type Severity Reaction Status Date / Time No Known Allergies Allergy Verified 12/29/24 13:42 Vital Signs Vital Signs - 24 hr 01/05/25 10:24 Temperature 97.9 F Pulse Rate 60 Respiratory Rate 18 Blood Pressure 126/70 Pulse Oximetry 100 Oxygen Delivery Room Air Exam Const: General: comfortable and no acute distress HENMT: Face/Nose/Sinus: Normal nares present Eyes: General: appearance normal, both eyes and all related structures Neck: Neck: no JVD Resp: Auscultation: clear to auscultation bilaterally Cardio: Rate: regular rate Rhythm: regular rhythm GI: Inspection: non-distended GI Palp: Yes Soft to palpation Skin: General skin exam: normal color Neuro: Speech: normal speech Extrem: General: normal to inspection Psych: Mental Status: mental status grossly normal Assessment and Plan Assessment and plan (1) Colon cancer screening: Code(s): Z12.11 - Encounter for screening for malignant neoplasm of colon Status: Resolved Assessment and Plan: colonoscopy
[2025-01-05 11:43] VITALS: BP 90/53; PULSE 68; RESP 20; O2SAT 100
[2025-01-05 11:53] VITALS: BP 88/40; PULSE 96; RESP 18; O2SAT 100
[2025-01-05 11:55] VITALS: BP 111/53; PULSE 88; RESP 24; O2SAT 100
[2025-01-05 12:03] VITALS: BP 110/56; PULSE 88; RESP 24; O2SAT 100
== END 2025-01-05 12:20 | disposition home or self-care (01) ==
PROVIDERS: PCP Family Medicine; Referring Provider Family Medicine; Visit Provider Internal Medicine Gastroenterology
PROC: 0DJD8ZZ Inspection of Lower Intestinal Tract, Via Natural or Artificial Opening Endoscopic (ICD-10-PCS; CPT 45378; principal; 2025-01-05 11:30)
DX: Z12.11 Encounter for screening for malignant neoplasm of colon (principal); K57.30 Diverticulosis of large intestine without perforation or abscess without bleeding; K64.8 Other hemorrhoids; Z87.891 Personal history of nicotine dependence
CPT/HCPCS: G0121; J2704; J7120